=== PATIENT | male | born 1935 | race Caucasian/White ===

== ENCOUNTER 2020-08-01 06:07 | Outpatient (REF) | payer MEDICARE, MEDICAID, SELFPAY ==
[2020-08-01 11:33] LABS: Hematocrit 43.1 % (42-52); Hemoglobin 13.2 g/dl (14.0-18.0); Mean Corpuscular HGB Conc 30.6 g/dl (31.0-36.0); Mean Corpuscular Hemoglobin 27.3 pg (27.0-33.0); Mean Corpuscular Volume 89.2 fL (80-98); Mean Platelet Volume 10.6 fL (9.4-12.4); Platelet Count 299 X10*3/uL (160-400); Red Blood Count 4.83 X10*6/uL (4.60-5.80); Red Cell Distribution Width 14.2 % (11.0-16.0); White Blood Count 7.5 X10*3/uL (4.8-10.8)
[2020-08-01 11:57] LABS: Alanine Aminotransferase 16 U/L (0-40); Anion Gap 14 (12-20); Aspartate Amino Transferase 17 U/L (5-37); Blood Urea Nitrogen 23 mg/dL (9-16); Calcium 9.1 mg/dL (8.4-10.2); Carbon Dioxide 27 mmol/L (22-29); Chloride 103 mmol/L (96-108); Cholesterol 131 mg/dL; Estimated Glomerular Filt Rate > 60; Glucose Fasting 152 mg/dL (60-99); HDL Cholesterol 35 mg/dL; LDL Cholesterol Calculated 78 mg/dl; Potassium 4.4 mmol/l (3.3-5.1); Sodium 140 mmol/L (135-145); Triglycerides 93 mg/dL
[2020-08-01 12:20] LABS: Ferritin 38 ng/mL (20-250); Free T4 (Free Thyroxine) 1.14 ng/dL (0.71-1.85); Thyroid Stimulating Hormone 0.37 mIU/mL (0.32-4.0)
== END 2020-08-01 06:08 | disposition home or self-care (01) ==
LOC: HO.HMGCLDS 06:07
PROVIDERS: PCP Internal Medicine; Visit Provider Internal Medicine
DX: D50.0 Iron deficiency anemia secondary to blood loss (chronic) (principal); E78.5 Hyperlipidemia, unspecified; E11.9 Type 2 diabetes mellitus without complications; E03.9 Hypothyroidism, unspecified; Z86.73 Personal history of transient ischemic attack (TIA), and cerebral infarction without residual deficits
CPT/HCPCS: 36415; 80048; 80061; 82728; 84439; 84443; 84450; 84460; 85027

== ENCOUNTER 2020-11-11 06:11 | Outpatient (REF) | payer MEDICARE, MEDICAID, SELFPAY ==
[2020-11-11 11:01] LABS: MANUAL DIFF FLAG NO
[2020-11-11 11:22] LABS: Basophils Absolute Auto 0.1 X10*3/uL (0.0-0.2); Basophils Percent Auto 0.8 % (0-2); Eosinophils Absolute Auto 0.3 X10*3/uL (0.0-0.4); Eosinophils Percent Auto 3.8 % (0-4); Estimated Average Glucose 169 mg/dL; Hematocrit 44.7 % (42-52); Hemoglobin 13.9 g/dl (14.0-18.0); Hemoglobin A1c % 7.5 %; Imm Gran Abs Auto 0.04 X10*3/uL (0.00-0.03); Imm Gran Pct Auto 0.5 % (0.0-0.4); Lymphocytes Absolute Auto 1.7 X10*3/uL (1.2-4.9); Lymphocytes Percent Auto 19.2 % (20-40); Mean Corpuscular HGB Conc 31.1 g/dl (31.0-36.0); Mean Corpuscular Hemoglobin 28.3 pg (27.0-33.0); Mean Corpuscular Volume 90.9 fL (80-98); Monocytes Absolute Auto 0.9 X10*3/uL (0.1-1.2); Monocytes Percent Auto 10.8 % (2-11); Neutrophils Absolute Auto 5.7 X10*3/uL (2.0-8.3); Neutrophils Percent Auto 64.9 % (45-73); Platelet Count 291 X10*3/uL (160-400); Red Blood Count 4.92 X10*6/uL (4.60-5.80); Red Cell Distribution Width 13.6 % (11.0-16.0); White Blood Count 8.7 X10*3/uL (4.8-10.8)
[2020-11-11 12:10] LABS: Alanine Aminotransferase 15 U/L (0-40); Anion Gap 15 (12-20); Blood Urea Nitrogen 25 mg/dL (9-16); Calcium 9.1 mg/dL (8.4-10.2); Carbon Dioxide 26 mmol/L (22-29); Chloride 107 mmol/L (96-108); Cholesterol 127 mg/dL; Estimated Glomerular Filt Rate > 60; Glucose Fasting 157 mg/dL (60-99); HDL Cholesterol 34 mg/dL; LDL Cholesterol Calculated 77 mg/dl; Potassium 4.7 mmol/l (3.3-5.1); Sodium 143 mmol/L (135-145); Triglycerides 80 mg/dL
[2020-11-11 12:14] LABS: Free T4 (Free Thyroxine) 1.02 ng/dL (0.71-1.85); Thyroid Stimulating Hormone 0.51 uIU/mL (0.32-4.0); Vitamin D 25-OH Total 8.4 ng/mL (>30)
[2020-11-11 12:23] LABS: Aspartate Amino Transferase 15 U/L (5-37)
[2020-11-11 12:36] LABS: Creatinine Urine 84.07 mg/dL; Microalbum/Creatinine Ratio Ur 11.8 ug/mg cr
== END 2020-11-11 06:12 | disposition home or self-care (01) ==
LOC: HO.HMGCLDS 06:11
PROVIDERS: PCP Internal Medicine; Visit Provider Internal Medicine
DX: E11.65 Type 2 diabetes mellitus with hyperglycemia (principal); I10 Essential (primary) hypertension; E78.5 Hyperlipidemia, unspecified; D50.0 Iron deficiency anemia secondary to blood loss (chronic); E03.9 Hypothyroidism, unspecified; E11.9 Type 2 diabetes mellitus without complications
CPT/HCPCS: 36415; 80048; 80061; 82043; 82306; 83036; 84439; 84443; 84450; 84460; 85025

== ENCOUNTER 2021-02-16 06:10 | Outpatient (REF) | payer MEDICARE, MEDICAID, SELFPAY ==
[2021-02-16 11:10] LABS: MANUAL DIFF FLAG NO
[2021-02-16 11:30] LABS: Basophils Absolute Auto 0.1 X10*3/uL (0.0-0.2); Basophils Percent Auto 0.6 % (0-2); Eosinophils Absolute Auto 0.3 X10*3/uL (0.0-0.4); Hematocrit 44.4 % (42-52); Hemoglobin 14.2 g/dl (14.0-18.0); Imm Gran Abs Auto 0.07 X10*3/uL (0.00-0.03); Imm Gran Pct Auto 0.8 % (0.0-0.4); Lymphocytes Absolute Auto 1.7 X10*3/uL (1.2-4.9); Lymphocytes Percent Auto 18.5 % (20-40); Mean Corpuscular Hemoglobin 28.8 pg (27.0-33.0); Mean Corpuscular Volume 90.1 fL (80-98); Mean Platelet Volume 11.3 fL (9.4-12.4); Monocytes Absolute Auto 0.9 X10*3/uL (0.1-1.2); Monocytes Percent Auto 9.4 % (2-11); Neutrophils Absolute Auto 6.2 X10*3/uL (2.0-8.3); Neutrophils Percent Auto 67.7 % (45-73); Platelet Count 269 X10*3/uL (160-400); Red Blood Count 4.93 X10*6/uL (4.60-5.80); Red Cell Distribution Width 13.3 % (11.0-16.0); White Blood Count 9.1 X10*3/uL (4.8-10.8)
[2021-02-16 11:55] LABS: Alanine Aminotransferase 14 U/L (0-40); Albumin Level 4.3 g/dL (3.5-5.0); Alkaline Phosphatase 79 U/L (39-117); Anion Gap 16 (12-20); Aspartate Amino Transferase 14 U/L (5-37); Bilirubin Total 0.8 mg/dL (0.0-1.0); Blood Urea Nitrogen 30 mg/dL (9-16); Calcium 9.9 mg/dL (8.4-10.2); Carbon Dioxide 26 mmol/L (22-29); Chloride 103 mmol/L (96-108); Cholesterol 133 mg/dL; Estimated Glomerular Filt Rate > 60; Glucose Fasting 141 mg/dL (60-99); HDL Cholesterol 36 mg/dL; Iron 82 mcg/dL (45-160); LDL Cholesterol Calculated 81 mg/dl; Percent Iron Saturation 23 % (15-50); Potassium 4.8 mmol/L (3.3-5.1); Sodium 140 mmol/L (135-145); Total Iron Binding Capacity 354 mcg/dL (228-428); Total Protein 7.1 g/dL (6.5-8.0); Triglycerides 84 mg/dL; Unsaturated Iron Binding 272 ug/dL
[2021-02-16 12:22] LABS: Ferritin 43 ng/mL (20-250); Thyroid Stimulating Hormone 0.43 uIU/mL (0.32-4.0); Vitamin D 25-OH Total 39.7 ng/mL (>30)
[2021-02-16 12:33] LABS: Estimated Average Glucose 157 mg/dL; Hemoglobin A1c % 7.1 %
[2021-02-16 12:45] LABS: Creatinine Urine 54.64 mg/dL; Microalbumin Urine < 5.0 mg/L
[2021-02-17 10:52] LABS: Thyroid Peroxidase Antibodies 191 IU/mL (<9)
== END 2021-02-16 06:11 | disposition home or self-care (01) ==
LOC: HO.HMGCLDS 06:10
PROVIDERS: PCP Internal Medicine; Visit Provider Internal Medicine
DX: E11.65 Type 2 diabetes mellitus with hyperglycemia (principal); E55.9 Vitamin D deficiency, unspecified; D50.0 Iron deficiency anemia secondary to blood loss (chronic); E66.01 Morbid (severe) obesity due to excess calories; I10 Essential (primary) hypertension; E03.9 Hypothyroidism, unspecified; E78.5 Hyperlipidemia, unspecified; Z12.5 Encounter for screening for malignant neoplasm of prostate
CPT/HCPCS: 36415; 80053; 80061; 82043; 82306; 82728; 83036; 83540; 84153; 84439; 84443; 85025; 86376

== ENCOUNTER 2021-05-18 06:09 | Outpatient (REF) | payer MEDICARE, MEDICAID, SELFPAY ==
[2021-05-18 11:21] LABS: MANUAL DIFF FLAG NO
[2021-05-18 11:46] LABS: Alanine Aminotransferase 12 U/L (0-40); Anion Gap 14 (12-20); Aspartate Amino Transferase 17 U/L (5-37); Blood Urea Nitrogen 15 mg/dL (9-16); Calcium 9.8 mg/dL (8.4-10.2); Carbon Dioxide 27 mmol/L (22-29); Chloride 105 mmol/L (96-108); Cholesterol 116 mg/dL; Estimated Glomerular Filt Rate > 60; Glucose Fasting 157 mg/dL (60-99); HDL Cholesterol 34 mg/dL; Iron 86 mcg/dL (45-160); LDL Cholesterol Calculated 68 mg/dl; Percent Iron Saturation 27 % (15-50); Potassium 5.2 mmol/L (3.3-5.1); Sodium 141 mmol/L (135-145); Total Iron Binding Capacity 320 mcg/dL (228-428); Triglycerides 72 mg/dL; Unsaturated Iron Binding 234 ug/dL
[2021-05-18 11:52] LABS: Basophils Absolute Auto 0.1 X10*3/uL (0.0-0.2); Basophils Percent Auto 0.9 % (0-2); Eosinophils Absolute Auto 0.2 X10*3/uL (0.0-0.4); Eosinophils Percent Auto 2.6 % (0-4); Hematocrit 42.7 % (42-52); Hemoglobin 13.4 g/dl (14.0-18.0); Imm Gran Abs Auto 0.06 X10*3/uL (0.00-0.03); Imm Gran Pct Auto 0.9 % (0.0-0.4); Lymphocytes Absolute Auto 1.1 X10*3/uL (1.2-4.9); Mean Corpuscular HGB Conc 31.4 g/dl (31.0-36.0); Mean Corpuscular Hemoglobin 28.8 pg (27.0-33.0); Mean Corpuscular Volume 91.6 fL (80-98); Mean Platelet Volume 10.5 fL (9.4-12.4); Monocytes Absolute Auto 0.7 X10*3/uL (0.1-1.2); Monocytes Percent Auto 9.4 % (2-11); Neutrophils Percent Auto 70.2 % (45-73); Platelet Count 279 X10*3/uL (160-400); Red Blood Count 4.66 X10*6/uL (4.60-5.80); Red Cell Distribution Width 13.8 % (11.0-16.0); White Blood Count 7.1 X10*3/uL (4.8-10.8)
[2021-05-18 11:58] LABS: Estimated Average Glucose 160 mg/dL; Hemoglobin A1c % 7.2 %
[2021-05-18 12:10] LABS: Free T4 (Free Thyroxine) 1.01 ng/dL (0.71-1.85); Thyroid Stimulating Hormone 0.93 uIU/mL (0.32-4.0)
== END 2021-05-18 06:10 | disposition home or self-care (01) ==
LOC: HO.HMGCLDS 06:09
PROVIDERS: PCP Internal Medicine; Visit Provider Internal Medicine
DX: D50.0 Iron deficiency anemia secondary to blood loss (chronic) (principal); E03.9 Hypothyroidism, unspecified; E11.65 Type 2 diabetes mellitus with hyperglycemia; E55.9 Vitamin D deficiency, unspecified; E66.01 Morbid (severe) obesity due to excess calories; E78.5 Hyperlipidemia, unspecified; I10 Essential (primary) hypertension
CPT/HCPCS: 36415; 80048; 80061; 82306; 83036; 83540; 84439; 84443; 84450; 84460; 85025

== ENCOUNTER 2021-09-08 06:09 | Outpatient (REF) | payer MEDICARE, MEDICAID, SELFPAY ==
[2021-09-08 12:05] LABS: Alanine Aminotransferase 12 U/L (0-40); Anion Gap 14 (12-20); Aspartate Amino Transferase 14 U/L (5-37); Blood Urea Nitrogen 19 mg/dL (9-16); Calcium 9.6 mg/dL (8.4-10.2); Carbon Dioxide 27 mmol/L (22-29); Chloride 103 mmol/L (96-108); Cholesterol 131 mg/dL; Estimated Glomerular Filt Rate > 60; Glucose Fasting 162 mg/dL (60-99); HDL Cholesterol 33 mg/dL; LDL Cholesterol Calculated 83 mg/dl; Potassium 4.9 mmol/L (3.3-5.1); Sodium 139 mmol/L (135-145); Triglycerides 78 mg/dL
[2021-09-08 12:10] LABS: Free T4 (Free Thyroxine) 0.98 ng/dL (0.71-1.85); Vitamin D 25-OH Total 47.6 ng/mL (>30)
[2021-09-08 13:40] LABS: Estimated Average Glucose 146 mg/dL; Hemoglobin A1c % 6.7 %
== END 2021-09-08 06:10 | disposition home or self-care (01) ==
LOC: HO.HMGCLDS 06:09
PROVIDERS: PCP Internal Medicine; Visit Provider Internal Medicine
DX: E03.9 Hypothyroidism, unspecified (principal); E11.65 Type 2 diabetes mellitus with hyperglycemia; E66.01 Morbid (severe) obesity due to excess calories; E78.5 Hyperlipidemia, unspecified; I10 Essential (primary) hypertension
CPT/HCPCS: 36415; 80048; 80061; 82306; 83036; 84439; 84443; 84450; 84460

== ENCOUNTER 2022-03-16 06:03 | Outpatient (REF) | payer MEDICARE, MEDICAID, SELFPAY ==
[2022-03-16 11:21] LABS: MANUAL DIFF FLAG NO
[2022-03-16 11:36] LABS: Basophils Absolute Auto 0.1 X10*3/uL (0.0-0.2); Basophils Percent Auto 0.8 % (0-2); Eosinophils Absolute Auto 0.3 X10*3/uL (0.0-0.4); Eosinophils Percent Auto 3.5 % (0-4); Hemoglobin 13.5 g/dl (14.0-18.0); Imm Gran Abs Auto 0.15 X10*3/uL (0.00-0.03); Imm Gran Pct Auto 1.7 % (0.0-0.4); Lymphocytes Absolute Auto 1.8 X10*3/uL (1.2-4.9); Mean Corpuscular HGB Conc 31.4 g/dl (31.0-36.0); Mean Corpuscular Hemoglobin 28.8 pg (27.0-33.0); Mean Corpuscular Volume 91.9 fL (80.0-98.0); Mean Platelet Volume 10.5 fL (9.4-12.4); Monocytes Absolute Auto 0.8 X10*3/uL (0.1-1.2); Monocytes Percent Auto 9.2 % (2-11); Neutrophils Absolute Auto 5.7 x10*3/uL (2.0-8.3); Neutrophils Percent Auto 64.8 % (45-73); Platelet Count 257 X10*3/uL (160-400); Red Blood Count 4.68 X10*6/uL (4.60-5.80); Red Cell Distribution Width 13.9 % (11.0-16.0); White Blood Count 8.8 X10*3/uL (4.8-10.8)
[2022-03-16 12:01] LABS: Estimated Average Glucose 154 mg/dL
[2022-03-16 12:12] LABS: Alanine Aminotransferase 13 U/L (0-40); Anion Gap 13 (12-20); Aspartate Amino Transferase 16 U/L (5-37); Blood Urea Nitrogen 19 mg/dL (9-16); Calcium 9.5 mg/dL (8.4-10.2); Carbon Dioxide 25 mmol/L (22-29); Chloride 108 mmol/L (96-108); Cholesterol 218 mg/dL; Estimated Glomerular Filt Rate > 60; Glucose Fasting 156 mg/dL (60-99); HDL Cholesterol 33 mg/dL; Iron 47 mcg/dL (45-160); LDL Cholesterol Calculated 165 mg/dl; Percent Iron Saturation 15 % (15-50); Potassium 4.8 mmol/L (3.3-5.1); Sodium 141 mmol/L (135-145); Total Iron Binding Capacity 321 mcg/dL (228-428); Triglycerides 102 mg/dL; Unsaturated Iron Binding 274 ug/dL
[2022-03-16 12:28] LABS: Free T4 (Free Thyroxine) 0.58 ng/dL (0.71-1.85); PSA,Total (Free>4and<10) 15.23 ng/mL (0.00-4.00); Thyroid Stimulating Hormone 29.87 uIU/mL (0.32-4.0); Vitamin D 25-OH Total 21.6 ng/mL (>30)
== END 2022-03-16 06:04 | disposition home or self-care (01) ==
LOC: HO.HMGCLDS 06:03
PROVIDERS: Visit Provider Internal Medicine
DX: Z12.5 Encounter for screening for malignant neoplasm of prostate (principal); E03.9 Hypothyroidism, unspecified; E11.9 Type 2 diabetes mellitus without complications; E55.9 Vitamin D deficiency, unspecified; E66.01 Morbid (severe) obesity due to excess calories; E78.5 Hyperlipidemia, unspecified; I10 Essential (primary) hypertension; R97.20 Elevated prostate specific antigen [PSA]; E50.0 Vitamin A deficiency with conjunctival xerosis
CPT/HCPCS: 36415; 80048; 80061; 82306; 83036; 83540; 84153; 84439; 84443; 84450; 84460; 85025

== ENCOUNTER 2022-06-18 06:05 | Outpatient (REF) | payer MEDICARE, MEDICAID, SELFPAY ==
[2022-06-18 11:49] LABS: Estimated Average Glucose 143 mg/dL; Hemoglobin A1c % 6.6 %
[2022-06-18 12:06] LABS: Alanine Aminotransferase 14 U/L (0-40); Anion Gap 16 (12-20); Aspartate Amino Transferase 18 U/L (5-37); Blood Urea Nitrogen 18 mg/dL (9-16); Calcium 9.4 mg/dL (8.4-10.2); Carbon Dioxide 25 mmol/L (22-29); Chloride 105 mmol/L (96-108); Cholesterol 109 mg/dL; Estimated Glomerular Filt Rate > 60; Glucose Fasting 136 mg/dL (60-99); HDL Cholesterol 33 mg/dL; LDL Cholesterol Calculated 64 mg/dl; Potassium 4.9 mmol/L (3.3-5.1); Sodium 141 mmol/L (135-145); Triglycerides 60 mg/dL
[2022-06-18 12:11] LABS: Free T4 (Free Thyroxine) 1.07 ng/dL (0.71-1.85); Thyroid Stimulating Hormone 1.91 uIU/mL (0.32-4.0); Vitamin D 25-OH Total 64.8 ng/mL (>30)
== END 2022-06-18 06:06 | disposition home or self-care (01) ==
LOC: HO.HMGCLDS 06:05
PROVIDERS: PCP Internal Medicine; Visit Provider Internal Medicine
DX: E03.9 Hypothyroidism, unspecified (principal); E11.9 Type 2 diabetes mellitus without complications; E55.9 Vitamin D deficiency, unspecified; E78.5 Hyperlipidemia, unspecified; I10 Essential (primary) hypertension
CPT/HCPCS: 36415; 80048; 80061; 82306; 83036; 84439; 84443; 84450; 84460

== ENCOUNTER 2022-09-21 06:01 | Outpatient (REF) | payer MEDICARE, MEDICAID, SELFPAY ==
[2022-09-21 14:10] LABS: Alanine Aminotransferase 13 U/L (0-40); Anion Gap 11 (12-20); Aspartate Amino Transferase 17 U/L (5-37); Blood Urea Nitrogen 21 mg/dL (9-16); Calcium 9.4 mg/dL (8.4-10.2); Carbon Dioxide 29 mmol/L (22-29); Chloride 108 mmol/L (96-108); Cholesterol 112 mg/dL; Estimated Glomerular Filt Rate > 60; Glucose Fasting 146 mg/dL (60-99); HDL Cholesterol 35 mg/dL; LDL Cholesterol Calculated 64 mg/dl; Potassium 5.2 mmol/L (3.3-5.1); Sodium 143 mmol/L (135-145); Thyroid Stimulating Hormone 1.82 uIU/mL (0.32-4.0); Triglycerides 69 mg/dL; Vitamin D 25-OH Total 33.6 ng/mL (>30)
[2022-09-21 15:20] LABS: Estimated Average Glucose 128 mg/dL; Hemoglobin A1c % 6.1 %
== END 2022-09-21 06:02 | disposition home or self-care (01) ==
LOC: HO.HMGCLDS 06:01
PROVIDERS: PCP Internal Medicine; Visit Provider Internal Medicine
DX: E11.9 Type 2 diabetes mellitus without complications (principal); E55.9 Vitamin D deficiency, unspecified; E66.01 Morbid (severe) obesity due to excess calories; E78.5 Hyperlipidemia, unspecified; I10 Essential (primary) hypertension; E03.9 Hypothyroidism, unspecified
CPT/HCPCS: 36415; 80048; 80061; 82306; 83036; 84439; 84443; 84450; 84460

== ENCOUNTER 2023-03-25 06:03 | Outpatient (REF) | payer MEDICARE, MEDICAID, SELFPAY ==
[2023-03-25 11:18] LABS: MANUAL DIFF FLAG NO
[2023-03-25 11:37] LABS: Basophils Absolute Auto 0.1 X10*3/uL (0.0-0.2); Basophils Percent Auto 0.6 % (0-2); Eosinophils Absolute Auto 0.2 X10*3/uL (0.0-0.4); Hematocrit 40.9 % (42.0-52.0); Hemoglobin 12.4 g/dl (14.0-18.0); Imm Gran Abs Auto 0.03 X10*3/uL (0.00-0.03); Imm Gran Pct Auto 0.4 % (0.0-0.4); Lymphocytes Absolute Auto 1.4 X10*3/uL (1.2-4.9); Mean Corpuscular HGB Conc 30.3 g/dl (31.0-36.0); Mean Corpuscular Hemoglobin 26.4 pg (27.0-33.0); Mean Platelet Volume 10.7 fL (9.4-12.4); Monocytes Absolute Auto 0.8 X10*3/uL (0.1-1.2); Monocytes Percent Auto 10.2 % (2-11); Neutrophils Absolute Auto 5.3 x10*3/uL (2.0-8.3); Neutrophils Percent Auto 67.8 % (45-73); Platelet Count 266 X10*3/uL (160-400); White Blood Count 7.8 X10*3/uL (4.8-10.8)
[2023-03-25 12:10] LABS: Alanine Aminotransferase 13 U/L (0-40); Anion Gap 14 (12-20); Aspartate Amino Transferase 18 U/L (5-37); Blood Urea Nitrogen 20 mg/dL (9-16); Calcium 9.9 mg/dL (8.4-10.2); Carbon Dioxide 29 mmol/L (22-29); Chloride 105 mmol/L (96-108); Cholesterol 102 mg/dL; Estimated Glomerular Filt Rate > 60; Glucose Fasting 133 mg/dL (60-99); HDL Cholesterol 36 mg/dL; LDL Cholesterol Calculated 54 mg/dl; Sodium 143 mmol/L (135-145); Triglycerides 60 mg/dL
[2023-03-25 12:14] LABS: Creatinine Urine 97.68 mg/dL; Microalbum/Creatinine Ratio Ur 20.4 ug/mg cr
[2023-03-25 12:15] LABS: Free T4 (Free Thyroxine) 0.93 ng/dL (0.71-1.85); Thyroid Stimulating Hormone 1.05 uIU/mL (0.32-4.0); Vitamin D 25-OH Total 33.5 ng/mL (>30)
== END 2023-03-25 06:04 | disposition home or self-care (01) ==
LOC: HO.HMGCLDS 06:03
PROVIDERS: PCP Internal Medicine; Visit Provider Internal Medicine
DX: E03.9 Hypothyroidism, unspecified (principal); E11.9 Type 2 diabetes mellitus without complications; E66.01 Morbid (severe) obesity due to excess calories; E78.5 Hyperlipidemia, unspecified; I10 Essential (primary) hypertension
CPT/HCPCS: 36415; 80048; 80061; 82043; 82306; 84439; 84443; 84450; 84460; 85025

== ENCOUNTER 2023-03-29 10:35 | Outpatient (AMB) | payer MEDICARE, MEDICAID, SELFPAY ==
--- NOTE | 2023-03-29 11:00 | A.OFFPC_ITS ---
<Statement entered by Evon Ashton MD - 02/20/25 15:16> This note has been administratively?closed. Vital Signs 03/29/23 11:18 Height 5 ft 2 in Weight 220 lb BMI 40.2 BP 142/64 H Blood Pressure Location Rt brachial Position Sitting Pulse 78 Pulse Source Pulse Oximeter Pulse Oximetry (%) 96 Oxygen Delivery Method Room Air Intake Visit Reasons: 6m ffup dm ,lipids ,htn , thyroid Intake Note: Pt Allergies No Known Allergies Allergy (Verified 03/29/23 11:35) Medication List - Last Reconciled 03/29/23 by Evon Ashton MD acetaminophen (Tylenol) 325 mg PO QID PRN aspirin (Adult Low Dose Aspirin) 81 mg PO DAILY atorvastatin 80 mg PO DAILY levothyroxine 125 mcg PO QAM lisinopril-hydrochlorothiazide 20-25 mg 1 tab PO DAILY metformin 500 mg PO QPM Tobacco use date assessed: 03/29/23 Fall risk assessment: No Falls in past year Last assessed Fall Risk: 03/29/23 [facility] Medical History Acquired hypothyroidism Acute erosive gastritis Diabetes mellitus, without long-term current use of insulin Dyslipidemia Elevated PSA, between 10 and less than 20 ng/ml Essential hypertension Gait instability Iron deficiency anemia due to chronic blood loss Morbid obesity TIA (transient ischemic attack) Vaccination refused by patient Vitamin D deficiency Surgical History No pertinent past surgical history Family History Father Unknown family medical history Mother Unknown family medical history Son No problems noted. Daughter No problems noted. Daughter No problems noted. Daughter No problems noted. Social History Housing: Apartment Alcohol intake: never Patient Tobacco Use Status: Never used Tobacco e-Cigarette/Vaping Use: Never Used Second Hand Smoke Exposure: No Advance Directives: Yes Advance Directives on File: Yes Advance Directives Date on File: 09/23/22 Healthcare Proxy: Yes If Yes to HCP, is it invoked: Yes service: No Current occupational status: retired Current occupational exposures/hazards: No Cognitive needs: Yes (needs daughter to translate , speaks only Telugu ) Hearing needs: No Vision needs: Yes Questionnaire Thrive Questionnaire Date Thrive assessed: 03/17/22 AUDIT C Alcohol Use Questionnaire (AUDIT-C) 1. How often do you have a drink containing alcohol?: Never Total Score: 0 GEOVANY-7 AMB Questionnaire GEOVANY-7 Date GEOVANY - 7 assessed: 03/17/22 Source: Developed by Drs. Fransico Stewart, Mila Perkins, Tapan Monreal and colleagues, with an educational jorge from [employer]. Physical exam (Primary Care) Vital Signs: Last Vital Signs Pulse 78 03/29/23 11:18 BP 142/64 H 03/29/23 11:18 Pulse Ox 96 03/29/23 11:18 Oxygen Delivery Method Room Air 03/29/23 11:18 BMI result Body Mass Index 40.2 Tobacco/Smoking Status: Tobacco use Status Tobacco use date assessed 03/29/23 03/29/23 11:03 Patient Tobacco Use Status Never used Tobacco 03/29/23 11:01 e-Cigarette/Vaping Use Never Used 03/29/23 11:01 Thrive Assessment: Date of Thrive Assessment Date Thrive assessed 03/17/22 03/29/23 11:01 Results AMB Hemoglobin A1c AMB Hemoglobin A1c 6.4 % Last Edit by Tia Rolle CMA on 03/29/23 11:33 Results Reviewed Results Reviewed: Laboratory Last Values Hgb A1c (Clinic) 6.4 % (4.0-6.0) H 03/29/23 11:27 ENTERED: 03/25/23-608 OT : ORDERED: CBC Auto Diff Test Result Flag Reference Site WBC 7.8 4.8-10.8 X10*3/uL RBC 4.70 4.60-5.80 X10*6/uL HGB 12.4 L 14.0-18.0 g/dl HCT 40.9 L 42.0-52.0 % MCV 87.0 80.0-98.0 fL MCH 26.4 L 27.0-33.0 pg MCHC 30.3 L 31.0-36.0 g/dl RDW 16.0 11.0-16.0 % PLT 266 160-400 X10*3/uL MPV 10.7 9.4-12.4 fL Neut Pct Auto 67.8 45-73 % ImGran Pct Auto 0.4 0.0-0.4 % Lymp Pct Auto 18.0 L 20-40 % Swisher Pct Auto 10.2 2-11 % Eos Pct Auto 3.0 0-4 % Baso Pct Auto 0.6 0-2 % NRBC Pct Auto 0.0 0.0-0.2 /100WBC ANC Neut Abs # 5.3 2.0-8.3 x10*3/uL ImGran Abs Auto 0.03 0.00-0.03 X10*3/uL Lymph Abs Auto 1.4 1.2-4.9 X10*3/uL Swisher Abs Auto 0.8 0.1-1.2 X10*3/uL Eos Abs Auto 0.2 0.0-0.4 X10*3/uL Baso Abs Auto 0.1 0.0-0.2 X10*3/uL NRBC Abs Auto 0.000 0.0-0.012 X10*3/uL ENTERED: 03/25/23-[address] [facility] [address]: ORDERED: Met Prof Fast, AST, ALT, Lipid Panel, Vitamin D 25-OH, Free T4, TSH Test Result Flag Reference Site Sodium 143 135-145 mmol/L Potassium 5.0 3.3-5.1 mmol/L CL 105 96-108 mmol/L CO2 29 22-29 mmol/L Gap 14 12-20 BUN 20 H 9-16 mg/dL Creat 0.99 0.5-1.4 mg/dL EGFR > 60 NOTE: For -Bahamian individuals, multiply the result by 1.210. Chronic Kidney Disease: Estimated GFR < 60 mL/min/1.73m2 Severe Kidney Disease: Estimated GFR < 15 mL/min/1.73m2 FBS 133 H 60-99 mg/dL A fasting glucose of 126 mg/dl or greater on more than one occasion is considered diagnostic of diabetes. CA 9.9 8.4-10.2 mg/dL AST (GOT) 18 5-37 U/L ALT (GPT) 13 0-40 U/L Triglyceride 60 mg/dL Desirable Triglyceride: less than 150 mg/dL Borderline High Triglyceride 150-199 mg/dL High Triglyceride: 200-499 mg/dL Very High Triglyceride: greater than or equal to 5OO mg/dL Chol 102 mg/dL Desirable Cholesterol: less than 200 mg/dL Borderline High Cholesterol: 200-239 mg/dL High Cholesterol: greater than 239 mg/dL LDL Calculated 54 mg/dl Desirable LDL: less than 100 mg/dL Near Optimal/Above Optimal LDL: 110-129 mg/dL Borderline High LDL: 130-159 mg/dL High LDL: 160-189 mg/dL Very High LDL: greater than or equal to 190 mg/dL HDL 36 mg/dL Desirable HDL: greater than 40 mg/dL Note: This HDL assay may give artificially low results in patients with liver disease. Vit D 25-OH Tot 33.5 >30 ng/mL Health Based Reference Values* < 20 ng/mL Deficient 20-30 ng/mL Insufficient > 30 ng/mL Sufficient *Rory BURGESS. N Engl J Med. 2007;357:266-280 Care must be taken in interpreting Vitamin D results from different laboratories and methodologies. Published data demonstrated that results from patients undergoing hemodialysis may show a negative bias when tested with various automated 25-OH vitamin D assays when compared to LC-MS/MS. When testing samples from patients whose predominant form of Vitamin D is Vitamin D2, such as patients receiving Vitamin D2 supplementation, results that are subtherapeutic should be confirmed with another method such as LC-MS/MS. Free T4 0.93 0.71-1.85 ng/dL TSH 3rd Gen. 1.05 0.32-4.0 uIU/mL TSH 3rd Generation ([facility]) Assessment and Plan Assessment & Plan (1) Diabetes mellitus, without long-term current use of insulin: Code(s): E11.9 - Type 2 diabetes mellitus without complications (2) Essential hypertension: Code(s): I10 - Essential (primary) hypertension (3) Acquired hypothyroidism: Code(s): E03.9 - Hypothyroidism, unspecified (4) Dyslipidemia: Code(s): E78.5 - Hyperlipidemia, unspecified Orders: Orders AMB Hemoglobin A1c Today E11.9 - Type 2 diabetes mellitus without complications Medications: Refilled levothyroxine 125 mcg PO QAM 90 tabs 3RF E03.9 - Hypothyroidism, unspecified lisinopril-hydrochlorothiazide 20-25 mg 1 tab PO DAILY 90 tabs 3RF metformin 500 mg PO QPM 90 tabs 3RF atorvastatin 80 mg PO DAILY 90 tabs 3RF Coding Level of Care Code Est Pt Level 4 (70687) Diagnoses Diabetes mellitus, without long-term current use of insulin E11.9 Essential hypertension I10 Acquired hypothyroidism E03.9 Dyslipidemia E78.5
[2023-03-29 11:18] VITALS: BP 142/64; PULSE 78; O2SAT 96; BMI 40.2
== END 2023-03-29 11:50 | disposition home or self-care (01) ==
PROVIDERS: Visit Provider Internal Medicine
DX: E11.9 Type 2 diabetes mellitus without complications (principal); I10 Essential (primary) hypertension; E03.9 Hypothyroidism, unspecified; E78.5 Hyperlipidemia, unspecified
CPT/HCPCS: 99499

== ENCOUNTER 2023-09-23 06:05 | Outpatient (REF) | payer MEDICARE, MEDICAID, SELFPAY ==
[2023-09-23 12:51] LABS: Estimated Average Glucose 154 mg/dL
[2023-09-23 14:58] LABS: Alanine Aminotransferase 16 U/L (0-40); Anion Gap 15 (12-20); Aspartate Amino Transferase 21 U/L (5-37); Blood Urea Nitrogen 32 mg/dL (9-16); Calcium 9.9 mg/dL (8.4-10.2); Carbon Dioxide 23 mmol/L (22-29); Chloride 107 mmol/L (96-108); Cholesterol 129 mg/dL (<200); Estimated Glomerular Filt Rate > 60; Glucose Fasting 153 mg/dL (60-99); HDL Cholesterol 38 mg/dL (>40); LDL Cholesterol Calculated 74 mg/dL (<100); Potassium 4.4 mmol/L (3.3-5.1); Sodium 141 mmol/L (135-145); Triglycerides 85 mg/dL (<150)
[2023-09-23 14:59] LABS: Free T4 (Free Thyroxine) 0.84 ng/dL (0.71-1.85); Thyroid Stimulating Hormone 3.31 uIU/mL (0.32-4.0)
== END 2023-09-23 06:06 | disposition home or self-care (01) ==
LOC: HO.HMGCLDS 06:05
PROVIDERS: PCP Internal Medicine; Visit Provider Internal Medicine
DX: I10 Essential (primary) hypertension (principal); E03.9 Hypothyroidism, unspecified; E78.5 Hyperlipidemia, unspecified; E11.9 Type 2 diabetes mellitus without complications
CPT/HCPCS: 36415; 80048; 80061; 83036; 84439; 84443; 84450; 84460

== ENCOUNTER 2023-09-28 10:38 | Outpatient (AMB) | payer MEDICARE, MEDICAID, SELFPAY ==
[2023-09-28 11:11] VITALS: BP 146/64; PULSE 74; O2SAT 99; BMI 40.6
--- NOTE | 2023-09-28 11:11 | MHC.PC.OV ---
Vital Signs 09/28/23 11:11 Height 5 ft 2 in Weight 222 lb 2 oz BMI 40.6 BP 146/64 H Blood Pressure Location Lt brachial Position Sitting Pulse 74 Pulse Source Pulse Oximeter Pulse Oximetry (%) 99 Oxygen Delivery Method Room Air Intake Visit Reasons: 6m follow up dm,lipids,htn,thyroid Intake Note: Pt is here to follow up for Lab results Allergies No Known Allergies Allergy (Verified 09/28/23 11:26) Medication List - Last Reconciled 09/28/23 by Evon Ashton MD acetaminophen (Tylenol) 325 mg PO QID PRN aspirin (Adult Low Dose Aspirin) 81 mg PO DAILY atorvastatin 80 mg PO DAILY levothyroxine 125 mcg PO QAM lisinopril-hydrochlorothiazide 20-25 mg 1 tab PO DAILY metformin 500 mg PO QPM Tobacco use date assessed: 09/28/23 Fall risk assessment: No Falls in past year Last assessed Fall Risk: 09/28/23 Dental Screening Dental Screen Date: 09/28/23 Did you have a dental visit in the last 12 months?: Yes Did you have a dental problem in the last 6 months where you did not have access to dental care?: No Was dental information given to patient?: Patient has dentist HPI 6m follow up dm,lipids,htn,thyroid HPI Details 88-year-old male with diabetes mellitus, hyperlipidemia, hypertension, hypothyroidism, and morbid obesity, here today for follow-up. He has been taking his medications , as per daughter tries to follow recommended diet, but does not get any exercise at all. Hardly gets out of the house, walks for little bit, but is is very sedentary. Also refuses to see any eye doctor for his eye check in diabetes retinopathy exam. As per daughter patient has been feeling well, with no complaints at present time. FORMERLY [facility] Medical History Diabetes mellitus, without long-term current use of insulin Elevated PSA, between 10 and less than 20 ng/ml Vitamin D deficiency Vaccination refused by patient Gait instability TIA (transient ischemic attack) Iron deficiency anemia due to chronic blood loss Acute erosive gastritis Morbid obesity Essential hypertension Acquired hypothyroidism Dyslipidemia Surgical History No pertinent past surgical history Family History Father Unknown family medical history Mother Unknown family medical history Son No problems noted. Daughter No problems noted. Daughter No problems noted. Daughter No problems noted. Social History Housing: Apartment Alcohol intake: never Patient Tobacco Use Status: Never used Tobacco e-Cigarette/Vaping Use: Never Used Second Hand Smoke Exposure: No Advance Directives Date on File: 09/23/22 service: No Current occupational status: retired Current occupational exposures/hazards: No Cognitive needs: Yes (needs daughter to translate , speaks only Bengali ) Hearing needs: No Vision needs: Yes Questionnaire PHQ-9 Over the last 2 weeks, how often have you been bothered by any of the following problems? 1. Little interest or pleasure in doing things: not at all 2. Feeling down, depressed, or hopeless: not at all 3. Trouble falling or staying asleep, or sleeping too much: more than half the days 4. Feeling tired or having little energy: several days 5. Poor appetite or overeating: not at all 6. Feeling bad about yourself - or that you are a failure or have let yourself or your family down: not at all 7. Trouble concentrating on things, such as reading the newspaper or watching television: not at all 8. Moving or speaking so slowly that other people could have noticed. Or the opposite - being so fidgety or restless that you have been moving around a lot more than usual: not at all 9. Thoughts that you would be better off or of hurting yourself in some way: not at all Total score: 3 Depression Screening Interpretation: Negative Depression Screening Done: Yes 80303 - PHQ-9 Billing: Yes Source: Developed by Drs. Fransico Stewart, Mila Perkins, Tapan Monreal and colleagues, with an educational jorge from [employer]. Thrive Questionnaire Date Thrive assessed: 09/28/23 I am a: Parent/Caregiver What is your living situation today?: I have a steady place to live Within the past 12 months, did the food you bought not last and you didn't have the money to get more?: Never true Within the past 12 months, did you worry whether your food would run out before you got money to buy more?: Never true Do you have trouble paying for medicines?: No Do you have trouble getting transportation to medical appointments?: No Do you have trouble paying your heating and electricity bill?: No Do you have trouble taking care of your child, family member or friend?: No Do you have trouble with day-to-day activities such as bathing, preparing meals, shopping, managing finances, etc.?: No Are you currently unemployed and looking for a job?: No Are you interested in more education?: No AUDIT C Alcohol Use Questionnaire (AUDIT-C) 1. How often do you have a drink containing alcohol?: Never Total Score: 0 GEOVANY-7 AMB Questionnaire GEOVANY-7 Date GEOVANY - 7 assessed: 09/28/23 Feeling nervous, anxious, or on edge: 0 = Not at all Not being able to stop or control worryin = Not at all Worrying too much about different things: 0 = Not at all Trouble relaxin = Not at all Being so restless that it is hard to sit still: 0 = Not at all Becoming easily annoyed or irritable: 0 = Not at all Feeling afraid as if something awful might happen: 0 = Not at all Total GEOVANY-7 score (0-4 normal; 5-9 mild; 10-14 moderate; 15-21 severe): 0 Source: Developed by Drs. Fransico Stewart, Mila Perkins, Tapan Monreal and colleagues, with an educational jorge from [employer]. GEOVANY-7 Assessment Billing GEOVANY-7 Assessment Tool: GEOVANY-7 Assessment 75063 Review of Systems Const Denies difficulty sleeping, Denies fever(s), Denies headache(s) and Reports weight loss Eyes Denies change in vision ENT Denies Normal hearing present (Unable to hear whispered voice), Denies dizziness, Denies headache(s), Denies nasal congestion, Denies nasal discharge and Denies sore throat Card Denies chest pain, Denies lightheadedness, Denies palpitations and Denies dyspnea Resp Denies chest congestion, Denies cough and Denies dyspnea GI Denies abdominal pain, Denies change in bowel habits and Denies heartburn Denies oliguria, Denies dysuria, Denies nocturia, Denies urinary frequency, Denies urinary hesitancy, Denies urinary incontinence and Denies urinary urgency Musc Reports arthralgias and Reports stiffness Skin/Breast Denies rash Neuro Denies Normal hearing present (Unable to hear whispered voice), Denies dizziness, Denies headache(s) and Denies Sensory deficit (Neuro) Psych Denies anxiety, Denies change in appetite, Denies depression and Denies irritability Endo Denies polydipsia, Denies polyuria and Denies palpitations Ramo/Lymph Denies easy bleeding and Denies easy bruising Aller/Immun Reports no additional complaints Physical exam (Primary Care) Vital Signs: Last Vital Signs Pulse 74 09/28/23 11:11 BP 146/64 H 09/28/23 11:11 Pulse Ox 99 09/28/23 11:11 Oxygen Delivery Method Room Air 09/28/23 11:11 BMI result Body Mass Index 40.6 BMI Assessment/Plan discussion: High BMI High, discussed plan: lifestyle, weight reduction, dietary and physical activity Tobacco/Smoking Status: Tobacco use Status Tobacco use date assessed 09/28/23 09/28/23 11:16 Patient Tobacco Use Status Never used Tobacco 09/28/23 11:16 e-Cigarette/Vaping Use Never Used 09/28/23 11:16 PHQ-9: PHQ-9 Score PHQ-9: Total score 3 11/12/23 09:51 Depression Screening Interpretation: Negative Thrive Assessment: Date of Thrive Assessment Date Thrive assessed 03/17/22 09/28/23 11:16 Const General: comfortable and no acute distress Nutritional Appearance: obese morbidly obese Orientation/consciousness: patient oriented x3 Limitations: ambulation with cane HENMT Head: Yes normal to inspection and Yes normocephalic Ears: EAC's normal General nose exam: Normal external nose present and No nasal discharge present Mouth: Normal oral and palatal mucosa present and moist mucous membranes Neck Neck: Yes full ROM and Yes no lymphadenopathy Thyroid: Thyroid normal Carotids: normal carotid upstroke Resp Auscultation: clear to auscultation bilaterally Cardio Rate: regular rate Rhythm: regular rhythm Heart sounds: S1 normal heart sound present and S2 normal heart sound present GI Inspection: Yes normal to inspection, Yes Abdominal panniculus present and Yes obesity Palpation (GI): Soft to palpation Auscultation: normal bowel sounds General: Yes no CVA tenderness Back/Spine/Pelvis Back: no CVA tenderness and No back tenderness Skin General skin exam: no rashes or lesions noted Neuro General: patient oriented x3, moves all extremities, Normal light touch and pain sensation, no focal motor deficits and CN's II-XI intact bilaterally Cranial nerves: No Normal hearing present (Unable to hear whispered voice) Sensory Exam: No Sensory deficit (Neuro) Extrem General: Yes normal to inspection, Yes full ROM, Yes no joint enlargement, Yes no pedal edema and Yes no calf tenderness Results Reviewed Results Reviewed: Laboratory Tests 09/21/22 09/23/23 06:08 06:25 Estimat Average Glucose 128 154 Hemoglobin A1c % 6.1 7.0 H PEC : [id number] BRITTANI: 09/23/23 STATUS: COMP REQ : [id number] RECD: 09/23/[address]: Evon Ashton MD COMP: 09/23/23 ENTERED: 09/23/23 [facility]: ORDERED: Met Prof Fast, AST, ALT, Lipid Panel, Free T4, TSH Test Result Flag Reference Site Sodium 141 135-145 mmol/L Potassium 4.4 3.3-5.1 mmol/L CL 107 96-108 mmol/L CO2 23 22-29 mmol/L Gap 15 12-20 BUN 32 H 9-16 mg/dL Creat 1.02 0.5-1.4 mg/dL EGFR > 60 NOTE: For -Congolese individuals, multiply the result by 1.210. Chronic Kidney Disease: Estimated GFR < 60 mL/min/1.73m2 Severe Kidney Disease: Estimated GFR < 15 mL/min/1.73m2 FBS 153 H 60-99 mg/dL A fasting glucose of 126 mg/dl or greater on more than one occasion is considered diagnostic of diabetes. CA 9.9 8.4-10.2 mg/dL AST (GOT) 21 5-37 U/L ALT (GPT) 16 0-40 U/L Triglyceride 85 <150 mg/dL Desirable Triglyceride: less than 150 mg/dL Borderline High Triglyceride 150-199 mg/dL High Triglyceride: 200-499 mg/dL Very High Triglyceride: greater than or equal to 5OO mg/dL Cholesterol 129 <200 mg/dL Desirable Cholesterol: less than 200 mg/dL Borderline High Cholesterol: 200-239 mg/dL High Cholesterol: greater than 239 mg/dL LDL Calculated 74 <100 mg/dL Desirable LDL: less than 100 mg/dL Near Optimal/Above Optimal LDL: 110-129 mg/dL Borderline High LDL: 130-159 mg/dL High LDL: 160-189 mg/dL Very High LDL: greater than or equal to 190 mg/dL HDL 38 L >40 mg/dL Desirable HDL: greater than 40 mg/dL Note: This HDL assay may give artificially low results in patients with liver disease. Free T4 0.84 0.71-1.85 ng/dL TSH 3rd Gen. 3.31 0.32-4.0 uIU/mL Note: A sustained TSH level above 2.5 uIU/mL may warrant further investigation. TSH 3rd Generation ([facility]) Assessment and Plan Assessment & Plan (1) Diabetes mellitus, without long-term current use of insulin: Code(s): E11.9 - Type 2 diabetes mellitus without complications Plan: Recent lab results reviewed with patient, with sugar and hemoglobin A1c stable and at goal. Continue metformin 500 mg 1 tablet at night with supper. Reinforced diabetic diet and regular exercise with patient. Declines eye exam. Patient advised to inspect feet daily, for any signs of injury, callus or infection. Compliance with diet and regular exercise again stressed. Blood pressure goal is less than 130/80, goal LDL is less than 100 and goal hemoglobin A1c is less than 7% follow-up appointment made in--5-months, after fasting labs done. (2) Vaccination refused by patient: Code(s): Z28.21 - Immunization not carried out because of patient refusal (3) Essential hypertension: Code(s): I10 - Essential (primary) hypertension Plan: Blood pressure mildly elevated today, stressed importance of following a low-salt diet and staying active. Will continue on lisinopril HCTZ 20-25 mg 1 daily (4) Acquired hypothyroidism: Code(s): E03.9 - Hypothyroidism, unspecified Plan: Thyroid levels are low normal will continue on current dose of levothyroxine 125 mcg taken once a day in a.m., will repeat another thyroid level in 5 month (5) Dyslipidemia: Code(s): E78.5 - Hyperlipidemia, unspecified Plan: Reviewed recent fasting lipid profile with patient with levels within normal limits . Continue with atorvastatin 80 mg daily , in addition to adherence to low-cholesterol diet and regular exercise, at least 30 minutes 3 to 4 times a week. Advised patient to make healthy food choices, eat more fruits, vegetables, whole grains, wild caught fish and low-fat dairy. Limit amount of meat and fried or fatty food products, as well as processed foods and fast foods. Follow-up scheduled with repeat fasting lipid panel in 5 months. Orders: Orders Thyroid Stimulating Hormone 02/15/24 E11.9 - Type 2 diabetes mellitus without complications, E66.01 - Morbid (severe) obesity due to excess calories, I10 - Essential (primary) hypertension, E03.9 - Hypothyroidism, unspecified, E78.5 - Hyperlipidemia, unspecified Free T4 (Free Thyroxine) 02/15/24 E03.9 - Hypothyroidism, unspecified, E11.9 - Type 2 diabetes mellitus without complications, E66.01 - Morbid (severe) obesity due to excess calories, I10 - Essential (primary) hypertension, E78.5 - Hyperlipidemia, unspecified Lipid Panel 02/15/24 E11.9 - Type 2 diabetes mellitus without complications, E66.01 - Morbid (severe) obesity due to excess calories, I10 - Essential (primary) hypertension, E03.9 - Hypothyroidism, unspecified, E78.5 - Hyperlipidemia, unspecified Alanine Aminotransferase 02/15/24 E11.9 - Type 2 diabetes mellitus without complications, E66.01 - Morbid (severe) obesity due to excess calories, I10 - Essential (primary) hypertension, E03.9 - Hypothyroidism, unspecified, E78.5 - Hyperlipidemia, unspecified Aspartate Amino Transferase 02/15/24 E11.9 - Type 2 diabetes mellitus without complications, E66.01 - Morbid (severe) obesity due to excess calories, I10 - Essential (primary) hypertension, E03.9 - Hypothyroidism, unspecified, E78.5 - Hyperlipidemia, unspecified Hemoglobin A1c 02/15/24 E11.9 - Type 2 diabetes mellitus without complications, E66.01 - Morbid (severe) obesity due to excess calories, I10 - Essential (primary) hypertension, E03.9 - Hypothyroidism, unspecified, E78.5 - Hyperlipidemia, unspecified Microalbumin, Random (w Creat) 02/15/24 E11.9 - Type 2 diabetes mellitus without complications, E66.01 - Morbid (severe) obesity due to excess calories, I10 - Essential (primary) hypertension, E03.9 - Hypothyroidism, unspecified, E78.5 - Hyperlipidemia, unspecified Basic Metabolic Panel Fasting 02/15/24 E11.9 - Type 2 diabetes mellitus without complications, E66.01 - Morbid (severe) obesity due to excess calories, I10 - Essential (primary) hypertension, E03.9 - Hypothyroidism, unspecified, E78.5 - Hyperlipidemia, unspecified Coding Level of Care Code Est Pt Level 4 (60838) Diagnoses Diabetes mellitus, without long-term current use of insulin E11.9 Vaccination refused by patient Z28.21 Essential hypertension I10 Acquired hypothyroidism E03.9 Dyslipidemia E78.5 Additional Codes GEOVANY-7 Assessment Billing - GEOVANY-7 Assessment Tool: GEOVANY-7 Assessment 09903 ([id number])
== END 2023-09-28 13:27 | disposition home or self-care (01) ==
PROVIDERS: PCP Internal Medicine; Visit Provider Internal Medicine
DX: E11.69 Type 2 diabetes mellitus with other specified complication (principal); E66.01 Morbid (severe) obesity due to excess calories; Z68.41 Body mass index [BMI] 40.0-44.9, adult; Z28.21 Immunization not carried out because of patient refusal; I10 Essential (primary) hypertension; E03.9 Hypothyroidism, unspecified; E78.5 Hyperlipidemia, unspecified
CPT/HCPCS: 99214

== ENCOUNTER 2024-03-02 06:01 | Outpatient (REF) | payer MEDICARE, MEDICAID, SELFPAY ==
[2024-03-02 11:01] LABS: Estimated Average Glucose 160 mg/dL; Hemoglobin A1c % 7.2 % (<6.0)
[2024-03-02 11:16] LABS: Alanine Aminotransferase 13 U/L (0-40); Anion Gap 13 (12-20); Aspartate Amino Transferase 17 U/L (5-37); Blood Urea Nitrogen 23 mg/dL (9-16); Calcium 9.2 mg/dL (8.4-10.2); Carbon Dioxide 24 mmol/L (22-29); Chloride 108 mmol/L (96-108); Cholesterol 97 mg/dL (<200); Estimated Glomerular Filt Rate > 60; Glucose Fasting 158 mg/dL (60-99); HDL Cholesterol 31 mg/dL (>40); LDL Cholesterol Calculated 51 mg/dL (<100); Potassium 4.4 mmol/L (3.3-5.1); Sodium 141 mmol/L (135-145); Triglycerides 76 mg/dL (<150)
[2024-03-02 11:20] LABS: Free T4 (Free Thyroxine) 1.17 ng/dL (0.71-1.85); Thyroid Stimulating Hormone 0.64 uIU/mL (0.32-4.0)
[2024-03-02 11:37] LABS: Creatinine Urine 95.66 mg/dL; Microalbum/Creatinine Ratio Ur 15.6 ug/mg cr (<30)
== END 2024-03-02 06:02 | disposition home or self-care (01) ==
LOC: HO.HMGCLDS 06:01
PROVIDERS: PCP Internal Medicine; Visit Provider Internal Medicine
DX: E11.9 Type 2 diabetes mellitus without complications (principal); E66.01 Morbid (severe) obesity due to excess calories; I10 Essential (primary) hypertension; E03.9 Hypothyroidism, unspecified; E78.5 Hyperlipidemia, unspecified
CPT/HCPCS: 36415; 80048; 80061; 82043; 82570; 83036; 84439; 84443; 84450; 84460

== ENCOUNTER 2024-03-05 10:38 | Outpatient (AMB) | payer MEDICARE, MEDICAID, SELFPAY ==
[2024-03-05 10:46] VITALS: BP 140/64; PULSE 84; O2SAT 96; BMI 40.4
--- NOTE | 2024-03-05 10:46 | AM.OFFVISMDC ---
Intake Vital Signs 03/05/24 10:46 Height 5 ft 2 in Weight 221 lb BMI 40.4 BP 140/64 H Blood Pressure Location Lt brachial Position Sitting Pulse 84 Pulse Source Pulse Oximeter Pulse Oximetry (%) 96 Oxygen Delivery Method Room Air Intake Visit Reasons: SWV G0439 Intake Note: Pt is here today for his SWV Allergies No Known Allergies Allergy (Verified 03/05/24 11:01) Medication List - Last Reconciled 03/05/24 by Evon Ashton MD acetaminophen (Tylenol) 325 mg PO QID PRN aspirin (Adult Low Dose Aspirin) 81 mg PO DAILY atorvastatin 80 mg PO DAILY levothyroxine 125 mcg PO QAM lisinopril-hydrochlorothiazide 20-25 mg 1 tab PO DAILY metformin 500 mg PO QPM HPI SWV G0439 HPI Details SWV ? 88 year old male presents for his Subsequent Annual Wellness Visit.? He has hypertension, diabetes mellitus, dyslipidemia and hypothyroidism, currently stable and controlled on present treatment. Latest fasting lipids, and hemoglobin [id number] 03/02/24 were within normal limits except for slightly elevated hemoglobin A1c at 7.2%,. He has never had a colonoscopy screening, declined procedure. Does not want to get any vaccines. He had an elevated PSA level checked last 03/16/2020 to but does not want to be referred for urologic evaluation. He has decreased hearing, but does not want to be referred for further evaluation and management. He also does not want to see an eye doctor for his diabetes retinopathy screening or routine eye check . ? Medical / Social History Reviewed? Past Medical History ?Yes . ? [place] of Care / Care Team list updated ?Yes . ? Surgical/Hospitalization History ?Yes . ? Current Medications (including OTC and supplements) ?Yes . ? Family History ?Yes . ? Tobacco Control form ?Yes . ? AUDIT-C (Alcohol use) form ?Yes . ? Illicit drug use in Social History ?Yes . ? Current diagnosis of depression? ?No ? Appropriate PHQ2/PHQ9 completed ?Yes . ? Data entered by ?[employer] and reviewed by provider ? Fall Risk ? Fall History? Have you had any falls with injury in the past year? ?No . ? Have you had two or more falls in the past year? ?No . ? Fall Risk Assessment: ?No falls in the past year . ? HRA filled out by the patient, reviewed by Provider and scanned. ? SWV ? Balance? [place] ?Yes . ? Tandem walk ?unable ? Walk and Turn ?Yes , using cane ? Rise from sit to stand ?Yes . ?Vision? Corrective lens-none ? Vision screen - patient referred?Hearing? Whisper test ?-failed. ?Written Plan?Completed. See Patient Documents.? [facility] Medical History Diabetes mellitus, without long-term current use of insulin Elevated PSA, between 10 and less than 20 ng/ml Vitamin D deficiency Vaccination refused by patient Gait instability TIA (transient ischemic attack) Iron deficiency anemia due to chronic blood loss Acute erosive gastritis Morbid obesity Essential hypertension Acquired hypothyroidism Dyslipidemia Surgical History No pertinent past surgical history Family History Father Unknown family medical history Mother Unknown family medical history Son No problems noted. Daughter No problems noted. Daughter No problems noted. Daughter No problems noted. Social History Housing: Apartment Alcohol intake: never Patient Tobacco Use Status: Never used Tobacco e-Cigarette/Vaping Use: Never Used Second Hand Smoke Exposure: No Advance Directives Date on File: 09/23/22 service: No Current occupational status: retired Current occupational exposures/hazards: No Cognitive needs: Yes (needs daughter to translate , speaks only Moldovan ) Hearing needs: No Vision needs: Yes Questionnaire Medicare Wellness Checkup What is your age?: 80 or older What gender do you identify with?: male During the past 4 weeks, how much have you been bothered by emotional problems such as feeling anxious, depressed, irritable, sad or downhearted, and blue?: slightly During the past 4 weeks, has your physical & emotional health limited your social activities with family, friends, neighbors, or groups?: slightly During the past 4 weeks, how much bodily pain have you generally had?: moderate pain During the past 4 weeks, was someone available to help you if you needed & wanted help?: yes, as much as I wanted During the past 4 weeks, what was the hardest physical activity you could do for at least 2 minutes?: light Can you get to places out of walking distance without help? (For eg., can you travel alone on buses, taxis or drive your car?): No Can you go shopping for groceries or clothes without someone's help?: No Can you prepare your own meals?: No Can you do your housework without help?: No Because of any health problems, do you need the help of another person with your personal care needs such as eating, bathing, dressing or getting around the house?: Yes Can you handle your own money without help?: No During the past 4 weeks, how would you rate your health in general?: fair During the past 4 weeks how have things been going for you?: pretty well Are you having difficulties driving your car?: not applicable, I don't use a car Do you always fasten your seat belt when you are in a car?: yes, usually During past 4 weeks, have you been bothered by the following: seldom: Falling or dizzy when standing up, sometimes: Trouble eating well?, Teeth or denture problems? and Problems using the telephone? and often: Tiredness or fatigue? Have you fallen 2 or more times in the past year?: No Are you afraid of falling?: Yes Are you a smoker?: no During the past 4 weeks, how many drinks of wine, beer, or other alcoholic beverages did you have?: no alcohol at all Do you exercise for about 20 minutes 3 or more times a week?: no, I usually do not exercise this much Have you been given information to help with the following?: yes: Hazards in your house that might hurt you? and yes: Keeping track of your medications? How often do you have trouble taking medicines the way you have been told to take them?: I always take medicine as prescribed How confident are you that you can control & manage most of your health problems?: not very confident What is your race?: White Mini Mental State Exam (MMSE) Orientation What is the (year) (season) (date) (day) (month)?: year (fail), season (fail), date (fail), day (fail) and month (fail) Where are we (state) (county) (town or city) (hospital) (floor)?: state (ID), county (fail), town or city (fail) and hospital/clinic (fail) Score Score: 9 Activity of Daily Living Bathing - sponge bath, tub bath or shower: receives help in bathing more than one body part (or not bathed) Dressing - getting clothes from closets & drawers, including inner/outer garments & fasteners.: gets clothes & gets dressed without help, except for help tying shoes Transfer: moves in & out of bed and chair without help (may use support object) Continence: has occasional 'accidents' Feeding: feeds self without help Total Score: 1 Information obtained from: informant Using telephone: dependent Traveling: dependent Shopping: dependent Preparing meals: dependent Housework: dependent Taking medicine: dependent Managing money: dependent PHQ-9 Over the last 2 weeks, how often have you been bothered by any of the following problems? 1. Little interest or pleasure in doing things: not at all 2. Feeling down, depressed, or hopeless: not at all 3. Trouble falling or staying asleep, or sleeping too much: more than half the days 4. Feeling tired or having little energy: more than half the days 5. Poor appetite or overeating: several days 6. Feeling bad about yourself - or that you are a failure or have let yourself or your family down: not at all 7. Trouble concentrating on things, such as reading the newspaper or watching television: several days 8. Moving or speaking so slowly that other people could have noticed. Or the opposite - being so fidgety or restless that you have been moving around a lot more than usual: not at all 9. Thoughts that you would be better off or of hurting yourself in some way: not at all Total score: 6 Depression Screening Interpretation: Negative 40547 - PHQ-9 Billing: Yes Source: Developed by Drs. Fransico Stewart, Mila Perkins, Tapan Monreal and colleagues, with an educational jorge from [employer]. GEOVANY-7 AMB Questionnaire GEOVANY-7 Date GEOVANY - 7 assessed: 03/05/24 Feeling nervous, anxious, or on edge: 1 = Several days Not being able to stop or control worryin = Not at all Worrying too much about different things: 1 = Several days Trouble relaxin = Not at all Being so restless that it is hard to sit still: 0 = Not at all Becoming easily annoyed or irritable: 1 = Several days Feeling afraid as if something awful might happen: 0 = Not at all Total GEOVANY-7 score (0-4 normal; 5-9 mild; 10-14 moderate; 15-21 severe): 3 Source: Developed by Drs. Fransico Stewart, Tapan Crump and colleagues, with an educational jorge from [employer]. GEOVANY-7 Assessment Billing GEOVANY-7 Assessment Tool: GEOVANY-7 Assessment 11920 Physical Exam Vital Signs: Last Vital Signs Pulse 84 03/05/24 10:46 BP 140/64 H 03/05/24 10:46 Pulse Ox 96 03/05/24 10:46 Oxygen Delivery Method Room Air 03/05/24 10:46 BMI result Body Mass Index 40.4 Assessment & Plan Assessment & Plan (1) Encounter for subsequent annual wellness visit in Medicare patient: Code(s): Z00.00 - Encounter for general adult medical examination without abnormal findings Plan: Medical wellness checklist discussed with patient and daughter, reviewed and updated. Patient does not want to get any vaccinations, does not want to get any further testing for his eyes or his prostate, up-to-date with his advance care directive (2) Dyslipidemia: Code(s): E78.5 - Hyperlipidemia, unspecified Plan: Continue atorvastatin 80 mg daily (3) Acquired hypothyroidism: Code(s): E03.9 - Hypothyroidism, unspecified Plan: Continue levothyroxine 125 mcg taken once a day in a.m. (4) Essential hypertension: Code(s): I10 - Essential (primary) hypertension Plan: Continue lisinopril-HCTZ (5) Morbid obesity: Code(s): E66.01 - Morbid (severe) obesity due to excess calories Plan: Reinforced importance of following recommended diet and get some form of exercise on a daily basis at least walk after eating for 15 minutes. (6) Vaccination refused by patient: Code(s): Z28.21 - Immunization not carried out because of patient refusal Plan: Patient declines getting any further vaccinations (7) Elevated PSA, between 10 and less than 20 ng/ml: Code(s): R97.20 - Elevated prostate specific antigen [PSA] Plan: Patient does not want to get further testing, currently asymptomatic (8) Diabetes mellitus, without long-term current use of insulin: Code(s): E11.9 - Type 2 diabetes mellitus without complications Qualifiers: Diabetes mellitus type: type 2 Diabetes mellitus complication status: with hyperglycemia Qualified Code(s): E11.65 - Type 2 diabetes mellitus with hyperglycemia Plan: Currently on metformin 500 mg taken 1 tablet at night with supper, Orders: Orders Free T4 (Free Thyroxine) 08/17/24 E03.9 - Hypothyroidism, unspecified, E11.9 - Type 2 diabetes mellitus without complications, E66.01 - Morbid (severe) obesity due to excess calories, E78.5 - Hyperlipidemia, unspecified, I10 - Essential (primary) hypertension, Z00.00 - Encounter for general adult medical examination without abnormal findings Alanine Aminotransferase 08/17/24 E03.9 - Hypothyroidism, unspecified, E11.9 - Type 2 diabetes mellitus without complications, E66.01 - Morbid (severe) obesity due to excess calories, E78.5 - Hyperlipidemia, unspecified, I10 - Essential (primary) hypertension, Z00.00 - Encounter for general adult medical examination without abnormal findings Aspartate Amino Transferase 08/17/24 E03.9 - Hypothyroidism, unspecified, E11.9 - Type 2 diabetes mellitus without complications, E66.01 - Morbid (severe) obesity due to excess calories, E78.5 - Hyperlipidemia, unspecified, I10 - Essential (primary) hypertension, Z00.00 - Encounter for general adult medical examination without abnormal findings Complete Blood Count Auto Diff 08/17/24 E03.9 - Hypothyroidism, unspecified, E11.9 - Type 2 diabetes mellitus without complications, E66.01 - Morbid (severe) obesity due to excess calories, E78.5 - Hyperlipidemia, unspecified, I10 - Essential (primary) hypertension, Z00.00 - Encounter for general adult medical examination without abnormal findings Vitamin D 25-OH Total 08/17/24 E03.9 - Hypothyroidism, unspecified, E11.9 - Type 2 diabetes mellitus without complications, E66.01 - Morbid (severe) obesity due to excess calories, E78.5 - Hyperlipidemia, unspecified, I10 - Essential (primary) hypertension, Z00.00 - Encounter for general adult medical examination without abnormal findings Thyroid Stimulating Hormone 08/17/24 E03.9 - Hypothyroidism, unspecified, E11.9 - Type 2 diabetes mellitus without complications, E66.01 - Morbid (severe) obesity due to excess calories, E78.5 - Hyperlipidemia, unspecified, I10 - Essential (primary) hypertension, Z00.00 - Encounter for general adult medical examination without abnormal findings Lipid Panel 08/17/24 E03.9 - Hypothyroidism, unspecified, E11.9 - Type 2 diabetes mellitus without complications, E66.01 - Morbid (severe) obesity due to excess calories, E78.5 - Hyperlipidemia, unspecified, I10 - Essential (primary) hypertension, Z00.00 - Encounter for general adult medical examination without abnormal findings Basic Metabolic Panel Fasting 08/17/24 E03.9 - Hypothyroidism, unspecified, E11.9 - Type 2 diabetes mellitus without complications, E66.01 - Morbid (severe) obesity due to excess calories, E78.5 - Hyperlipidemia, unspecified, I10 - Essential (primary) hypertension, Z00.00 - Encounter for general adult medical examination without abnormal findings Hemoglobin A1c 08/17/24 E03.9 - Hypothyroidism, unspecified, E11.9 - Type 2 diabetes mellitus without complications, E66.01 - Morbid (severe) obesity due to excess calories, E78.5 - Hyperlipidemia, unspecified, I10 - Essential (primary) hypertension, Z00.00 - Encounter for general adult medical examination without abnormal findings Vitamin B12 and Folate 08/17/24 E03.9 - Hypothyroidism, unspecified, E11.9 - Type 2 diabetes mellitus without complications, E66.01 - Morbid (severe) obesity due to excess calories, E78.5 - Hyperlipidemia, unspecified, I10 - Essential (primary) hypertension, Z00.00 - Encounter for general adult medical examination without abnormal findings Quality Reporting (2019) Depression/Bipolar (159/160/161/177) PHQ-9: Total score: 6 Coding Level of Care Code Medicare Subsequent (G0439) Diagnoses Encounter for subsequent annual wellness visit in Medicare patient Z00.00 Dyslipidemia E78.5 Acquired hypothyroidism E03.9 Essential hypertension I10 Morbid obesity E66.01 Vaccination refused by patient Z28.21 Elevated PSA, between 10 and less than 20 ng/ml R97.20 Type 2 diabetes mellitus with hyperglycemia, without long-term current use of insulin E11.65 Diabetes mellitus type: type 2 Diabetes mellitus complication status: with hyperglycemia CPT Codes Advance Care Planning - Time spent: 16-45 minutes ([id number]) Additional Codes GEOVANY-7 Assessment Billing - GEOVANY-7 Assessment Tool: GEOVANY-7 Assessment 36085 ([id number]) Advance Care Planning Advance Care Planning discussion: Completed/Scanned Date of discussion: 09/23/22 Who was present: patient and daughter Forms completed: Health Care Proxy and MOLST Time spent: 16-45 minutes Actual minutes spent: 16
== END 2024-03-05 11:24 | disposition home or self-care (01) ==
LOC: HO.HMGC 10:38
PROVIDERS: PCP Internal Medicine; Visit Provider Internal Medicine
DX: Z00.00 Encounter for general adult medical examination without abnormal findings (principal); E66.01 Morbid (severe) obesity due to excess calories; E11.65 Type 2 diabetes mellitus with hyperglycemia; Z68.41 Body mass index [BMI] 40.0-44.9, adult; E78.5 Hyperlipidemia, unspecified; E03.9 Hypothyroidism, unspecified; I10 Essential (primary) hypertension; Z28.21 Immunization not carried out because of patient refusal; R97.20 Elevated prostate specific antigen [PSA]
CPT/HCPCS: 99497; G0439

== ENCOUNTER 2024-09-03 06:01 | Outpatient (REF) | payer MEDICARE, MEDICAID, SELFPAY ==
[2024-09-03 10:04] LABS: MANUAL DIFF FLAG NO
[2024-09-03 10:27] LABS: Estimated Average Glucose 154 mg/dL; Hemoglobin A1C 187.4116 umol/L; Total Hemoglobin (HGBA1C) 3558.3828 umol/L
[2024-09-03 10:28] LABS: Basophils Absolute Auto 0.1 X10*3/uL (0.0-0.2); Basophils Percent Auto 0.8 % (0-2); Eosinophils Absolute Auto 0.3 X10*3/uL (0.0-0.4); Eosinophils Percent Auto 3.3 % (0-4); Hematocrit 42.8 % (42.0-52.0); Hemoglobin 13.6 g/dl (14.0-18.0); Imm Gran Abs Auto 0.04 X10*3/uL (0.00-0.03); Imm Gran Pct Auto 0.5 % (0.0-0.4); Lymphocytes Absolute Auto 1.4 X10*3/uL (1.2-4.9); Mean Corpuscular HGB Conc 31.8 g/dl (31.0-36.0); Mean Corpuscular Hemoglobin 28.8 pg (27.0-33.0); Mean Corpuscular Volume 90.5 fL (80.0-98.0); Mean Platelet Volume 10.5 fL (9.4-12.4); Monocytes Absolute Auto 0.7 X10*3/uL (0.1-1.2); Monocytes Percent Auto 9.5 % (2-11); Neutrophils Percent Auto 66.9 % (45-73); Platelet Count 271 X10*3/uL (160-400); Red Blood Count 4.73 X10*6/uL (4.60-5.80); Red Cell Distribution Width 13.4 % (11.0-16.0); White Blood Count 7.5 X10*3/uL (4.8-10.8)
[2024-09-03 10:41] LABS: Alanine Aminotransferase 16 U/L (0-40); Anion Gap 14 (12-20); Aspartate Amino Transferase 26 U/L (5-37); Blood Urea Nitrogen 28 mg/dL (9-16); Calcium 10.3 mg/dL (8.4-10.2); Carbon Dioxide 27 mmol/L (22-29); Chloride 105 mmol/L (96-108); Cholesterol 104 mg/dL (<200); Estimated Glomerular Filt Rate 58; Glucose Fasting 135 mg/dL (60-99); HDL Cholesterol 35 mg/dL (>40); LDL Cholesterol Calculated 55 mg/dL (<100); Potassium 4.8 mmol/L (3.3-5.1); Sodium 141 mmol/L (135-145); Triglycerides 72 mg/dL (<150)
[2024-09-03 10:50] LABS: Free T4 (Free Thyroxine) 1.14 ng/dL (0.71-1.85); Thyroid Stimulating Hormone 0.54 uIU/mL (0.32-4.0); Vitamin D 25-OH Total 27.4 ng/mL (>30)
[2024-09-03 10:57] LABS: Folate 9.1 ng/mL (> or = 4.0); Vitamin B12 520 pg/mL (200-900)
== END 2024-09-03 06:02 | disposition home or self-care (01) ==
LOC: HO.HMGCLDS 06:01
PROVIDERS: PCP Internal Medicine; Visit Provider Internal Medicine
DX: Z00.00 Encounter for general adult medical examination without abnormal findings (principal); E11.9 Type 2 diabetes mellitus without complications; E66.01 Morbid (severe) obesity due to excess calories; I10 Essential (primary) hypertension; E03.9 Hypothyroidism, unspecified; E78.5 Hyperlipidemia, unspecified
CPT/HCPCS: 36415; 80048; 80061; 82306; 82607; 82746; 83036; 84439; 84443; 84450; 84460; 85025

== ENCOUNTER 2024-09-04 11:39 | Outpatient (AMB) | payer MEDICARE, MEDICAID, SELFPAY ==
[2024-09-04 11:56] VITALS: BP 164/74; PULSE 76; O2SAT 97; BMI 40.2
--- NOTE | 2024-09-04 11:56 | A.OFFPC_ITS ---
Vital Signs 09/04/24 11:56 Height 5 ft 2 in Weight 220 lb BMI 40.2 BP 164/74 H Blood Pressure Location Lt brachial Position Sitting Pulse 76 Pulse Source Pulse Oximeter Pulse Oximetry (%) 97 Oxygen Delivery Method Room Air Intake Visit Reasons: 6 month follow up Intake Note: Pt is here today for his 6mo. f/u Allergies No Known Allergies Allergy (Verified 09/05/24 02:01) Medication List - Last Reconciled 09/05/24 by Evon Ashton MD acetaminophen (Tylenol) 325 mg PO QID PRN aspirin (Adult Low Dose Aspirin) 81 mg PO DAILY atorvastatin 80 mg PO DAILY diaper,brief,adult,disposable (Jack[employer] Choice Comfort Protect Adult Diaper X- Large) Use As directed 3 times a day levothyroxine 125 mcg PO QAM lisinopril-hydrochlorothiazide 20-25 mg 1 tab PO DAILY metformin 500 mg PO QPM Tobacco use date assessed: 09/04/24 Fall risk assessment: No Falls in past year Last assessed Fall Risk: 09/04/24 Dental Screening Dental Screen Date: 09/04/24 Did you have a dental visit in the last 12 months?: Yes Did you have a dental problem in the last 6 months where you did not have access to dental care?: Yes Was dental information given to patient?: Patient has dentist HPI 6 month follow up HPI Details The patient is an 89-year-old male presenting with urinary incontinence and hypertension management. Urinary incontinence has been ongoing, specifically with urinary frequency and incomplete control, requiring pull-up diapers, which were not correctly provided. The patient uses pull-ups three to four times daily, primarily for urinary incontinence. This has not been formally evaluated by a urologist, as the patient is reluctant to pursue further investigations, such as a prostate examination, despite the suggestion of a potential underlying prostate issue. Hypertension has been a persistent issue for the patient, with today's reading at 164/74 mmHg. The patient is on a regimen of Lisinopril and Hydrochlorothiazide, but due to episodes of hypotension and associated weakness, the dosing has been inconsistent. Intermittent hypotension, reported as low as 58 mmHg systolic, was identified, with recommendations to adjust dosing based on symptomatology and readings. Recent adjustments involved halving doses due to perceived low blood pressure, which may correlate with feelings of weakness. Chronic conditions including diabetes and hypothyroidism are noted. Diabetes management includes Metformin, with improved Hemoglobin A1c of 7%, suggesting improved glycemic control. Anemia has shown improvement in recent labs with a hemoglobin of 13.6 g/dL. The BUN is elevated, indicating possible dehydration or kidney impairment, likely exacerbated by insufficient fluid intake, which may be influenced by diuretic therapy. Vitamin D deficiency is present, with a level of 27 ng/mL, although supplementation adherence is poor. [facility] Medical History Urinary incontinence Diabetes mellitus, without long-term current use of insulin Elevated PSA, between 10 and less than 20 ng/ml Vitamin D deficiency Vaccination refused by patient Gait instability TIA (transient ischemic attack) Iron deficiency anemia due to chronic blood loss Acute erosive gastritis Morbid obesity Essential hypertension Acquired hypothyroidism Dyslipidemia Surgical History No pertinent past surgical history Family History Father Unknown family medical history Mother Unknown family medical history Son No problems noted. Daughter No problems noted. Daughter No problems noted. Daughter No problems noted. Social History Housing: Apartment Alcohol intake: never Patient Tobacco Use Status: Never used Tobacco e-Cigarette/Vaping Use: Never Used Second Hand Smoke Exposure: No Advance Directives Date on File: 09/23/22 service: No Current occupational status: retired Current occupational exposures/hazards: No Cognitive needs: Yes (needs daughter to translate , speaks only Jamaican ) Hearing needs: No Vision needs: Yes Questionnaire PHQ-9 Over the last 2 weeks, how often have you been bothered by any of the following problems? Depression Screening Interpretation: Negative Depression Screening Done: Yes Source: Developed by Drs. Fransico Stewart, Mila Perkins, Tapan Monreal and colleagues, with an educational jorge from [employer]. Thrive Questionnaire Date Thrive assessed: 09/28/23 I am a: Parent/Caregiver What is your living situation today?: I have a steady place to live Within the past 12 months, did the food you bought not last and you didn't have the money to get more?: Never true Within the past 12 months, did you worry whether your food would run out before you got money to buy more?: Never true Do you have trouble paying for medicines?: No Do you have trouble getting transportation to medical appointments?: No Do you have trouble paying your heating and electricity bill?: No Do you have trouble taking care of your child, family member or friend?: I choose not to answer this question Do you have trouble with day-to-day activities such as bathing, preparing meals, shopping, managing finances, etc.?: Yes Are you currently unemployed and looking for a job?: No Are you interested in more education?: No Please select the resources that you would like help with: None Currently or been in a relationship where the following occur: No concerns reported THRIVE Score: 0 AUDIT C Alcohol Use Questionnaire (AUDIT-C) 1. How often do you have a drink containing alcohol?: Never Total Score: 0 GEOVANY-7 AMB Questionnaire GEOVANY-7 Date GEOVANY - 7 assessed: 03/05/24 Feeling nervous, anxious, or on edge: 0 = Not at all Not being able to stop or control worryin = Not at all Worrying too much about different things: 0 = Not at all Trouble relaxin = Not at all Being so restless that it is hard to sit still: 0 = Not at all Becoming easily annoyed or irritable: 0 = Not at all Feeling afraid as if something awful might happen: 0 = Not at all Total GEOVANY-7 score (0-4 normal; 5-9 mild; 10-14 moderate; 15-21 severe): 0 Source: Developed by Drs. Fransico Stewart, Mila Perkins, Tapan Monreal and colleagues, with an educational jorge from [employer]. Review of Systems Const Denies difficulty sleeping, Denies fever(s), Denies headache(s) and Reports weight loss Eyes Denies change in vision ENT Denies Normal hearing present (Unable to hear whispered voice), Denies dizziness, Denies headache(s), Denies nasal congestion, Denies nasal discharge and Denies sore throat Card Denies chest pain, Denies lightheadedness, Denies palpitations and Denies dyspnea Resp Denies chest congestion, Denies cough and Denies dyspnea GI Denies abdominal pain, Denies change in bowel habits and Denies heartburn Denies oliguria, Denies dysuria, Denies urinary hesitancy and Denies urinary urgency Musc Reports arthralgias and Reports stiffness Skin/Breast Denies rash Neuro Denies Normal hearing present (Unable to hear whispered voice), Denies dizziness, Denies headache(s) and Denies Sensory deficit (Neuro) Psych Denies anxiety, Denies change in appetite, Denies depression and Denies irritability Endo Denies polydipsia, Denies polyuria and Denies palpitations Ramo/Lymph Denies easy bleeding and Denies easy bruising Aller/Immun Reports no additional complaints Physical exam (Primary Care) Vital Signs: Last Vital Signs Pulse 76 09/04/24 11:56 BP 164/74 H 09/04/24 11:56 Pulse Ox 97 09/04/24 11:56 Oxygen Delivery Method Room Air 09/04/24 11:56 BMI result Body Mass Index 40.2 BMI Assessment/Plan discussion: High BMI High, discussed plan: lifestyle, weight reduction, dietary and physical activity Tobacco/Smoking Status: Tobacco use Status Tobacco use date assessed 09/04/24 09/04/24 12:00 Patient Tobacco Use Status Never used Tobacco 09/04/24 12:00 e-Cigarette/Vaping Use Never Used 09/04/24 12:00 PHQ-9: PHQ-9 Score PHQ-9: Total score 6 09/05/24 01:58 Depression Screening Interpretation: Negative Thrive Assessment: Date of Thrive Assessment Date Thrive assessed 09/28/23 09/04/24 12:00 Currently or been in a relationship where the following occur: No concerns reported Const General: comfortable and no acute distress Nutritional Appearance: obese morbidly obese Orientation/consciousness: patient oriented x3 Limitations: ambulation with cane HENMT Head: Yes normal to inspection and Yes normocephalic Ears: EAC's normal General nose exam: Normal external nose present and No nasal discharge present Mouth: Normal oral and palatal mucosa present and moist mucous membranes Neck Neck: Yes full ROM and Yes no lymphadenopathy Thyroid: Thyroid normal Carotids: normal carotid upstroke Resp Auscultation: clear to auscultation bilaterally Cardio Rate: regular rate Rhythm: regular rhythm Heart sounds: S1 normal heart sound present and S2 normal heart sound present GI Inspection: Yes normal to inspection, Yes Abdominal panniculus present and Yes obesity Palpation (GI): Soft to palpation Auscultation: normal bowel sounds General: Yes no CVA tenderness Back/Spine/Pelvis Back: no CVA tenderness and No back tenderness Skin General skin exam: no rashes or lesions noted Neuro General: patient oriented x3, moves all extremities, Normal light touch and pain sensation, no focal motor deficits and CN's II-XI intact bilaterally Cranial nerves: No Normal hearing present (Unable to hear whispered voice) Sensory Exam: No Sensory deficit (Neuro) Extrem General: Yes normal to inspection, Yes full ROM, Yes no joint enlargement, Yes no pedal edema and Yes no calf tenderness Results Reviewed Results Reviewed: Name: Saul Aldridge Age/Sex: 89/M : 1935 Unit#: [id number] Attend Dr: Evon Ashton MD Re09/03/24 Status: DEP REF Location: [facility] Disch: SPEC : [id number] BRITTANI: 09/03/24 STATUS: COMP REQ : [id number] RECD: 09/03/[address]: Evon Ashton MD COMP: 09/03/24 ENTERED: 09/03/24 [facility] DR: ORDERED: CBC Auto Diff Test Result Flag Reference WBC 7.5 4.8-10.8 X10*3/uL RBC 4.73 4.60-5.80 X10*6/uL HGB 13.6 L 14.0-18.0 g/dl HCT 42.8 42.0-52.0 % MCV 90.5 80.0-98.0 fL MCH 28.8 27.0-33.0 pg MCHC 31.8 31.0-36.0 g/dl RDW 13.4 11.0-16.0 % PLT 271 160-400 X10*3/uL MPV 10.5 9.4-12.4 fL Neut Pct Auto 66.9 45-73 % ImGran Pct Auto 0.5 H 0.0-0.4 % Lymp Pct Auto 19.0 L 20-40 % [place]owndes Pct Auto 9.5 2-11 % Eos Pct Auto 3.3 0-4 % Baso Pct Auto 0.8 0-2 % NRBC Pct Auto 0.0 0.0-0.2 /100WBC ANC Neut Abs # 5.0 2.0-8.3 x10*3/uL ImGran Abs Auto 0.04 H 0.00-0.03 X10*3/uL Lymph Abs Auto 1.4 1.2-4.9 X10*3/uL [place] Abs Auto 0.7 0.1-1.2 X10*3/uL Eos Abs Auto 0.3 0.0-0.4 X10*3/uL Baso Abs Auto 0.1 0.0-0.2 X10*3/uL NRBC Abs Auto 0.000 0.0-0.012 X10*3/uL Name: Saul Aldridge Age/Sex: 89/M : 1935 Unit#: [id number] Attend Dr: Evon Ashton MD Re09/03/24 Status: DEP REF Location: [facility] Disch: SPEC : [id number] BRITTANI: 09/03/24 STATUS: COMP REQ : [id number] RECD: 09/03/[address] [facility] [address]: Evon Ashton MD COMP: 09/03/24 ENTERED: 09/03/24 [facility] DR: ORDERED: Met Prof Fast, AST, ALT, Lipid Panel, Vitamin D 25-OH, Free T4, TSH Test Result Flag Reference Sodium 141 135-145 mmol/L Potassium 4.8 3.3-5.1 mmol/L CL 105 96-108 mmol/L CO2 27 22-29 mmol/L Gap 14 12-20 BUN 28 H 9-16 mg/dL Creat 1.19 0.5-1.4 mg/dL eGFR 58 Chronic Kidney Disease: Estimated GFR < 60 mL/min/1.73m2 Severe Kidney Disease: Estimated GFR < 15 mL/min/1.73m2 FBS 135 H 60-99 mg/dL A fasting glucose of 126 mg/dl or greater on more than one occasion is considered diagnostic of diabetes. CA 10.3 # H 8.4-10.2 mg/dL AST (GOT) 26 5-37 U/L ALT (GPT) 16 0-40 U/L Triglyceride 72 <150 mg/dL Desirable Triglyceride: less than 150 mg/dL Borderline High Triglyceride 150-199 mg/dL High Triglyceride: 200-499 mg/dL Very High Triglyceride: greater than or equal to 5OO mg/dL Cholesterol 104 <200 mg/dL Desirable Cholesterol: less than 200 mg/dL Borderline High Cholesterol: 200-239 mg/dL High Cholesterol: greater than 239 mg/dL LDL Calculated 55 <100 mg/dL Desirable LDL: less than 100 mg/dL Near Optimal/Above Optimal LDL: 110-129 mg/dL Borderline High LDL: 130-159 mg/dL High LDL: 160-189 mg/dL Very High LDL: greater than or equal to 190 mg/dL HDL 35 L >40 mg/dL Desirable HDL: greater than 40 mg/dL Note: This HDL assay may give artificially low results in patients with liver disease. Vit D 25-OH Tot 27.4 L >30 ng/mL Health Based Reference Values* < 20 ng/mL Deficient 20-30 ng/mL Insufficient > 30 ng/mL Sufficient *Rory BURGESS. N Engl J Med. 2007;[id number]:266-280 Care must be taken in interpreting Vitamin D results from different laboratories and methodologies. Published data demonstrated that results from patients undergoing hemodialysis may show a negative bias when tested with various automated 25-OH vitamin D assays when compared to LC-MS/MS. When testing samples from patients whose predominant form of Vitamin D is Vitamin D2, such as patients receiving Vitamin D2 supplementation, results that are subtherapeutic should be confirmed with another method such as LC-MS/MS. Free T4 1.14 0.71-1.85 ng/dL TSH 3rd Gen. 0.54 0.32-4.0 uIU/mL TSH 3rd Generation ([facility]) Laboratory Tests 03/02/24 09/03/24 07:10 06:05 Estimat Average Glucose 154 Hemoglobin A1c % 7.0 H Microalb/Creat Ratio 15.6 Coding Level of Care Code Est Pt Level 4 (31936) Complex EM visit Add On G2211 Diagnoses Urinary incontinence, unspecified type R32 Urinary Incontinence type: unspecified incontinence Type 2 diabetes mellitus with hyperglycemia, without long-term current use of insulin E11.65 Diabetes mellitus complication status: with hyperglycemia Diabetes mellitus type: type 2 Essential hypertension I10 Acquired hypothyroidism E03.9 Dyslipidemia E78.5 Vaccination refused by patient Z28.21 Assessment & Plan Assessment & Plan (1) Urinary incontinence: Code(s): R32 - Unspecified urinary incontinence Category: Medical Qualifiers: Urinary Incontinence type: unspecified incontinence Qualified Code(s): R32 - Unspecified urinary incontinence (2) Diabetes mellitus, without long-term current use of insulin: Code(s): E11.9 - Type 2 diabetes mellitus without complications Category: Medical Qualifiers: Diabetes mellitus complication status: with hyperglycemia Diabetes mellitus type: type 2 Qualified Code(s): E11.65 - Type 2 diabetes mellitus with hyperglycemia (3) Essential hypertension: Code(s): I10 - Essential (primary) hypertension Category: Medical (4) Acquired hypothyroidism: Code(s): E03.9 - Hypothyroidism, unspecified Category: Medical (5) Dyslipidemia: Code(s): E78.5 - Hyperlipidemia, unspecified Category: Medical (6) Vaccination refused by patient: Code(s): Z28.21 - Immunization not carried out because of patient refusal Category: Medical Plan - Urinary Incontinence: Continue current use of pull-up diapers. No urological referral as per patient refusal. - Hypertension: Reinforce adherence to Lisinopril and Hydrochlorothiazide. Adjust dosage based on home blood pressure monitoring. - Diabetes Mellitus Type 2: Continue Metformin. Monitor renal function regularly. refuses to have another eye exam - Anemia: Continue dietary intake contributing to improvement. No additional intervention required. - Chronic Kidney Disease: Encourage increased fluid intake and monitor renal function. - Vitamin D Deficiency: Start 2,000 IU of Vitamin D3 orally daily, reassess in winter. - Arthralgia: Continue current management; self-reported use of acetaminophen or similar [id number] medications as needed for pain. - Hypercholesterolemia: Encourage physical activity within tolerant limits. - Osteoporosis Risk: Emphasize importance of Vitamin D supplementation for bone health. Patient was informed and verbally consented to the use of an ambient scribe for clinic note documentation during this visit. Orders: Orders Lipid Panel 02/14/25 E03.9 - Hypothyroidism, unspecified, E11.65 - Type 2 diabetes mellitus with hyperglycemia, E78.5 - Hyperlipidemia, unspecified, I10 - Essential (primary) hypertension, R32 - Unspecified urinary incontinence Alanine Aminotransferase 02/14/25 E03.9 - Hypothyroidism, unspecified, E11.65 - Type 2 diabetes mellitus with hyperglycemia, E78.5 - Hyperlipidemia, unspecified, I10 - Essential (primary) hypertension, R32 - Unspecified urinary incontinence Complete Blood Count Auto Diff 02/14/25 E03.9 - Hypothyroidism, unspecified, E11.65 - Type 2 diabetes mellitus with hyperglycemia, E78.5 - Hyperlipidemia, unspecified, I10 - Essential (primary) hypertension, R32 - Unspecified urinary incontinence Free T4 (Free Thyroxine) 02/14/25 E03.9 - Hypothyroidism, unspecified, E11.65 - Type 2 diabetes mellitus with hyperglycemia, E78.5 - Hyperlipidemia, unspecified, I10 - Essential (primary) hypertension, R32 - Unspecified urinary incontinence Hemoglobin A1c 02/14/25 E03.9 - Hypothyroidism, unspecified, E11.65 - Type 2 diabetes mellitus with hyperglycemia, E78.5 - Hyperlipidemia, unspecified, I10 - Essential (primary) hypertension, R32 - Unspecified urinary incontinence Microalbumin, Random (w Creat) 02/14/25 E03.9 - Hypothyroidism, unspecified, E11.65 - Type 2 diabetes mellitus with hyperglycemia, E78.5 - Hyperlipidemia, unspecified, I10 - Essential (primary) hypertension, R32 - Unspecified urinary incontinence Aspartate Amino Transferase 02/14/25 E03.9 - Hypothyroidism, unspecified, E11.65 - Type 2 diabetes mellitus with hyperglycemia, E78.5 - Hyperlipidemia, unspecified, I10 - Essential (primary) hypertension, R32 - Unspecified urinary i ncontinence Basic Metabolic Panel Fasting 02/14/25 E03.9 - Hypothyroidism, unspecified, E11.65 - Type 2 diabetes mellitus with hyperglycemia, E78.5 - Hyperlipidemia, unspecified, I10 - Essential (primary) hypertension, R32 - Unspecified urinary incontinence Thyroid Stimulating Hormone 02/14/25 E03.9 - Hypothyroidism, unspecified, E11.65 - Type 2 diabetes mellitus with hyperglycemia, E78.5 - Hyperlipidemia, unspecified, I10 - Essential (primary) hypertension, R32 - Unspecified urinary incontinence
== END 2024-09-04 14:37 | disposition home or self-care (01) ==
PROVIDERS: PCP Internal Medicine; Visit Provider Internal Medicine
DX: R32 Unspecified urinary incontinence (principal); E11.65 Type 2 diabetes mellitus with hyperglycemia; I10 Essential (primary) hypertension; E03.9 Hypothyroidism, unspecified; E78.5 Hyperlipidemia, unspecified; Z28.21 Immunization not carried out because of patient refusal

== ENCOUNTER → 2024-09-04 11:39 | Outpatient (BNVA) | payer MEDICARE, MEDICAID, SELFPAY | PROVIDERS: PCP Internal Medicine; Visit Provider Internal Medicine | DX: R32 Unspecified urinary incontinence (principal); E11.65 Type 2 diabetes mellitus with hyperglycemia; I10 Essential (primary) hypertension; E03.9 Hypothyroidism, unspecified; E78.5 Hyperlipidemia, unspecified | CPT/HCPCS: 96127; 99212 ==

== ENCOUNTER 2025-03-04 06:07 | Outpatient (REF) | payer MEDICARE, MEDICAID, SELFPAY ==
[2025-03-04 10:10] LABS: MANUAL DIFF FLAG NO
[2025-03-04 10:32] LABS: Basophils Absolute Auto 0.1 X10*3/uL (0.0-0.2); Basophils Percent Auto 0.9 % (0-2); Eosinophils Absolute Auto 0.3 X10*3/uL (0.0-0.4); Eosinophils Percent Auto 3.6 % (0-4); Hematocrit 40.2 % (42.0-52.0); Hemoglobin 12.6 g/dl (14.0-18.0); Imm Gran Abs Auto 0.05 X10*3/uL (0.00-0.03); Imm Gran Pct Auto 0.7 % (0.0-0.4); Lymphocytes Absolute Auto 1.4 X10*3/uL (1.2-4.9); Lymphocytes Percent Auto 20.3 % (20-40); Mean Corpuscular HGB Conc 31.3 g/dl (31.0-36.0); Mean Corpuscular Hemoglobin 28.6 pg (27.0-33.0); Mean Corpuscular Volume 91.4 fL (80.0-98.0); Mean Platelet Volume 10.9 fL (9.4-12.4); Monocytes Absolute Auto 0.8 X10*3/uL (0.1-1.2); Monocytes Percent Auto 11.4 % (2-11); Neutrophils Absolute Auto 4.4 x10*3/uL (2.0-8.3); Neutrophils Percent Auto 63.1 % (45-73); Platelet Count 238 X10*3/uL (160-400); Red Cell Distribution Width 13.5 % (11.0-16.0)
[2025-03-04 10:38] LABS: Estimated Average Glucose 154 mg/dL; Hemoglobin A1C 176.7396 umol/L; Total Hemoglobin (HGBA1C) 3358.1382 umol/L
[2025-03-04 10:52] LABS: Alanine Aminotransferase 14 U/L (0-40); Anion Gap 14 (12-20); Aspartate Amino Transferase 27 U/L (5-37); Blood Urea Nitrogen 28 mg/dL (9-16); Calcium 9.4 mg/dL (8.4-10.2); Carbon Dioxide 23 mmol/L (22-29); Chloride 108 mmol/L (96-108); Cholesterol 113 mg/dL (<200); Estimated Glomerular Filt Rate > 60; Glucose Fasting 148 mg/dL (60-99); HDL Cholesterol 32 mg/dL (>40); LDL Cholesterol Calculated 69 mg/dL (<100); Potassium 4.6 mmol/L (3.3-5.1); Sodium 140 mmol/L (135-145); Triglycerides 64 mg/dL (<150)
[2025-03-04 11:10] LABS: Creatinine Urine 59.54 mg/dL; Microalbum/Creatinine Ratio Ur 25.1 ug/mg cr (<30)
[2025-03-04 11:12] LABS: Free T4 (Free Thyroxine) 1.28 ng/dL (0.71-1.85)
== END 2025-03-04 06:08 | disposition home or self-care (01) ==
LOC: HO.HMGCLDS 06:07
PROVIDERS: PCP Internal Medicine; Visit Provider Internal Medicine
DX: E03.9 Hypothyroidism, unspecified (principal); E78.5 Hyperlipidemia, unspecified; I10 Essential (primary) hypertension; E11.65 Type 2 diabetes mellitus with hyperglycemia; R32 Unspecified urinary incontinence
CPT/HCPCS: 36415; 80048; 80061; 82043; 82570; 83036; 84439; 84443; 84450; 84460; 85025

== ENCOUNTER 2025-03-06 10:35 | Outpatient (AMB) | payer MEDICARE, MEDICAID, SELFPAY ==
[2025-03-06 11:02] VITALS: BP 110/80; PULSE 67; RESP 20; TEMP 36.5; O2SAT 95; BMI 41.5
--- NOTE | 2025-03-06 11:02 | A.OFFVIS_ITS ---
Intake Vital Signs 03/06/25 11:02 Height 5 ft 2 in Intake Visit Reasons: SWV G0439 Intake Note: Pt is here today for his SWV Allergies No Known Allergies Allergy (Verified 03/06/25 11:03) [facility] Medical History Urinary incontinence Diabetes mellitus, without long-term current use of insulin Elevated PSA, between 10 and less than 20 ng/ml Vitamin D deficiency Vaccination refused by patient Gait instability TIA (transient ischemic attack) Iron deficiency anemia due to chronic blood loss Acute erosive gastritis Morbid obesity Essential hypertension Acquired hypothyroidism Dyslipidemia Surgical History No pertinent past surgical history Family History Father Unknown family medical history Mother Unknown family medical history Son No problems noted. Daughter No problems noted. Daughter No problems noted. Daughter No problems noted. Social History Housing: Apartment Alcohol intake: never Patient Tobacco Use Status: Never used Tobacco e-Cigarette/Vaping Use: Never Used Second Hand Smoke Exposure: No Advance Directives Date on File: 09/23/22 service: No Current occupational status: retired Current occupational exposures/hazards: No Cognitive needs: Yes (needs daughter to translate , speaks only Dutch ) Hearing needs: No Vision needs: Yes Questionnaire PHQ-9 Over the last 2 weeks, how often have you been bothered by any of the following problems? 1. Little interest or pleasure in doing things: several days 2. Feeling down, depressed, or hopeless: not at all 3. Trouble falling or staying asleep, or sleeping too much: several days 4. Feeling tired or having little energy: several days 5. Poor appetite or overeating: not at all 6. Feeling bad about yourself - or that you are a failure or have let yourself or your family down: not at all 7. Trouble concentrating on things, such as reading the newspaper or watching television: several days 8. Moving or speaking so slowly that other people could have noticed. Or the opposite - being so fidgety or restless that you have been moving around a lot more than usual: not at all 9. Thoughts that you would be better off or of hurting yourself in some way: not at all Total score: 4 Source: Developed by Drs. Fransico Stewart, Mila Perkins, Tapan Monreal and colleagues, with an educational jorge from [employer]. Quality Reporting (2019) Depression/Bipolar (159/160/161/177) PHQ-9: Total score: 4 Coding
--- NOTE | 2025-03-06 11:09 | MHC.PC.OV ---
Vital Signs 03/06/25 11:02 Height 5 ft 2 in Weight 227 lb BMI 41.5 BP 110/80 Blood Pressure Location Lt brachial Position Sitting Respiration 20 Pulse 67 Pulse Source Pulse Oximeter Temp 97.7 F Temp Source Oral Pulse Oximetry (%) 95 Oxygen Delivery Method Room Air Intake Visit Reasons: Pt is here today for his PE Intake Note: Pt is here today for his PE Allergies No Known Allergies Allergy (Verified 03/06/25 11:37) Medication List - Last Reconciled 03/06/25 by Evon Ashton MD acetaminophen (Tylenol) 325 mg PO QID PRN aspirin (Adult Low Dose Aspirin) 81 mg PO DAILY atorvastatin 80 mg PO DAILY cholecalciferol (vitamin D3) 50 mcg PO DAILY diaper,brief,adult,disposable (Gilbert Choice Comfort Protect Adult Diaper X-Large) Use As directed 3 times a day levothyroxine 125 mcg PO QAM lisinopril-hydrochlorothiazide 20-25 mg 1 tab PO DAILY metformin 500 mg PO QPM [Pull-ups use As directed NS] [Pull-ups briefs As directed NS] Tobacco use date assessed: 03/06/25 Fall risk assessment: No Falls in past year Last assessed Fall Risk: 03/06/25 Dental Screening Dental Screen Date: 03/06/25 Did you have a dental visit in the last 12 months?: Yes Did you have a dental problem in the last 6 months where you did not have access to dental care?: Yes Was dental information given to patient?: Patient has dentist HPI HPI Comments History of Present Illness Details 89-year-old male with history of dyslipidemia, type 2 diabetes mellitus, hypothyroidism, anemia, elevated PSA level morbid obesity, and hypertension, here today for his physical exam. He has been taking his medicines as directed, Dr. Franco henson, but she states that he has really been noncompliant with diet and does not get up much to do any real form of exercise. He however does not have any complaints, has a good appetite. Latest fasting labs done showed hemoglobin A1c at 7%, with normal fasting lipids, and thyroid levels. He however still remains anemic . Has no overt signs of bleeding. Has history of erosive gastritis, current now currently asymptomatic. Patient however does not want to do any colon cancer screening either colonoscopy or Cologuard testing. You also refuses to do any eye exams, or get any vaccines [facility] Medical History (Updated 03/06/25 @ 11:48 by Evon Ashton MD) Anemia Vitamin D deficiency Urinary incontinence Diabetes mellitus, without long-term current use of insulin Elevated PSA, between 10 and less than 20 ng/ml Vaccination refused by patient Gait instability TIA (transient ischemic attack) Iron deficiency anemia due to chronic blood loss Acute erosive gastritis Morbid obesity Essential hypertension Acquired hypothyroidism Dyslipidemia Surgical History No pertinent past surgical history Family History Father Unknown family medical history Mother Unknown family medical history Son No problems noted. Daughter No problems noted. Daughter No problems noted. Daughter No problems noted. Social History Housing: Apartment Alcohol intake: never Patient Tobacco Use Status: Never used Tobacco e-Cigarette/Vaping Use: Never Used Second Hand Smoke Exposure: No Advance Directives Date on File: 09/23/22 service: No Current occupational status: retired Current occupational exposures/hazards: No Cognitive needs: Yes (needs daughter to translate , speaks only Telugu ) Hearing needs: No Vision needs: Yes Questionnaire PHQ-9 Over the last 2 weeks, how often have you been bothered by any of the following problems? 1. Little interest or pleasure in doing things: several days 2. Feeling down, depressed, or hopeless: not at all 3. Trouble falling or staying asleep, or sleeping too much: several days 4. Feeling tired or having little energy: several days 5. Poor appetite or overeating: not at all 6. Feeling bad about yourself - or that you are a failure or have let yourself or your family down: not at all 7. Trouble concentrating on things, such as reading the newspaper or watching television: several days 8. Moving or speaking so slowly that other people could have noticed. Or the opposite - being so fidgety or restless that you have been moving around a lot more than usual: not at all 9. Thoughts that you would be better off or of hurting yourself in some way: not at all Total score: 4 Depression Screening Interpretation: Negative Depression Screening Done: Yes 77958 - PHQ-9 Billing: Yes Source: Developed by Drs. Fransico Stewart, Mila Perkins, Tapan Monreal and colleagues, with an educational jorge from [employer]. Thrive Questionnaire Date Thrive assessed: 03/06/25 I am a: Patient What is your living situation today?: I have a steady place to live Within the past 12 months, did the food you bought not last and you didn't have the money to get more?: Never true Within the past 12 months, did you worry whether your food would run out before you got money to buy more?: Never true Do you have trouble paying for medicines?: No Do you have trouble getting transportation to medical appointments?: No Do you have trouble paying your heating and electricity bill?: No Do you have trouble taking care of your child, family member or friend?: No Do you have trouble with day-to-day activities such as bathing, preparing meals, shopping, managing finances, etc.?: No Are you currently unemployed and looking for a job?: No Currently or been in a relationship where the following occur: No concerns reported THRIVE Score: 0 GEOVANY-7 AMB Questionnaire GEOVANY-7 Date GEOVANY - 7 assessed: 03/05/24 Source: Developed by Drs. Fransico Stewart, Mila Perkins, Tapan Monreal and colleagues, with an educational jorge from [employer]. Review of Systems Const Denies difficulty sleeping, Denies fever(s), Denies headache(s) and Reports weight loss Eyes Denies change in vision ENT Denies Normal hearing present (Unable to hear whispered voice), Denies dizziness, Denies headache(s), Denies nasal congestion, Denies nasal discharge and Denies sore throat Card Denies chest pain, Denies lightheadedness, Denies palpitations and Denies dyspnea Resp Denies chest congestion, Denies cough and Denies dyspnea GI Denies abdominal pain, Denies change in bowel habits and Denies heartburn Denies oliguria, Denies dysuria, Denies urinary hesitancy and Denies urinary urgency Musc Reports arthralgias and Reports stiffness Skin/Breast Denies rash Neuro Denies Normal hearing present (Unable to hear whispered voice), Denies dizziness, Denies headache(s) and Denies Sensory deficit (Neuro) Psych Denies anxiety, Denies change in appetite, Denies depression and Denies irritability Endo Denies polydipsia, Denies polyuria and Denies palpitations Ramo/Lymph Denies easy bleeding and Denies easy bruising Aller/Immun Reports no additional complaints Physical exam (Primary Care) Vital Signs: Last Vital Signs Temp 97.7 F 03/06/25 11:02 Pulse 67 03/06/25 11:02 Resp 20 03/06/25 11:02 BP 110/80 03/06/25 11:02 Pulse Ox 95 03/06/25 11:02 Oxygen Delivery Method Room Air 03/06/25 11:02 BMI result Body Mass Index 41.5 BMI Assessment/Plan discussion: High BMI High, discussed plan: lifestyle, weight reduction, dietary and physical activity Tobacco/Smoking Status: Tobacco use Status Tobacco use date assessed 03/06/25 03/06/25 11:17 Patient Tobacco Use Status Never used Tobacco 03/06/25 11:17 e-Cigarette/Vaping Use Never Used 03/06/25 11:17 PHQ-9: PHQ-9 Score PHQ-9: Total score 4 03/12/25 02:14 Depression Screening Interpretation: Negative Thrive Assessment: Date of Thrive Assessment Date Thrive assessed 03/06/25 03/06/25 11:17 Currently or been in a relationship where the following occur: No concerns reported Const General: comfortable and no acute distress Nutritional Appearance: obese morbidly obese Orientation/consciousness: patient oriented x3 Limitations: ambulation with cane HENMT Head: Yes normal to inspection and Yes normocephalic Ears: EAC's normal General nose exam: Normal external nose present and No nasal discharge present Mouth: Normal oral and palatal mucosa present and moist mucous membranes Neck Neck: Yes full ROM and Yes no lymphadenopathy Thyroid: Thyroid normal Carotids: normal carotid upstroke Resp Auscultation: clear to auscultation bilaterally Cardio Rate: regular rate Rhythm: regular rhythm Heart sounds: S1 normal heart sound present and S2 normal heart sound present GI Inspection: Yes normal to inspection, Yes Abdominal panniculus present and Yes obesity Palpation (GI): Soft to palpation Auscultation: normal bowel sounds General: Yes no CVA tenderness Back/Spine/Pelvis Back: no CVA tenderness and No back tenderness Skin General skin exam: no rashes or lesions noted Neuro General: patient oriented x3, moves all extremities, Normal light touch and pain sensation, no focal motor deficits and CN's II-XI intact bilaterally Cranial nerves: No Normal hearing present (Unable to hear whispered voice) Sensory Exam: No Sensory deficit (Neuro) Extrem General: Yes normal to inspection, Yes full ROM, Yes no joint enlargement, Yes no pedal edema and Yes no calf tenderness Results Reviewed Results Reviewed: manuel: Saul Aldridge Age/Sex: 89/M : 1935 Unit#: [id number] Attend Dr: Evon Ashton MD Re03/04/25 Status: DEP REF Location: [facility] Disch: SPEC : [id number] BRITTANI: 03/04/25 STATUS: COMP REQ : [id number] RECD: 03/04/[address]: Evon Ashton MD COMP: 03/04/25 ENTERED: 03/04/[address] [facility] [address]: ORDERED: CBC Auto Diff Test Result Flag Reference WBC 7.0 4.8-10.8 X10*3/uL RBC 4.40 L 4.60-5.80 X10*6/uL HGB 12.6 L 14.0-18.0 g/dl HCT 40.2 L 42.0-52.0 % MCV 91.4 80.0-98.0 fL MCH 28.6 27.0-33.0 pg MCHC 31.3 31.0-36.0 g/dl RDW 13.5 11.0-16.0 % PLT 238 160-400 X10*3/uL MPV 10.9 9.4-12.4 fL Neut Pct Auto 63.1 45-73 % ImGran Pct Auto 0.7 H 0.0-0.4 % Lymp Pct Auto 20.3 20-40 % [facility] Pct Auto 11.4 H 2-11 % Eos Pct Auto 3.6 0-4 % Baso Pct Auto 0.9 0-2 % NRBC Pct Auto 0.0 0.0-0.2 /100WBC ANC Neut Abs # 4.4 2.0-8.3 x10*3/uL ImGran Abs Auto 0.05 H 0.00-0.03 X10*3/uL Lymph Abs Auto 1.4 1.2-4.9 X10*3/uL [facility] Abs Auto 0.8 0.1-1.2 X10*3/uL Eos Abs Auto 0.3 0.0-0.4 X10*3/uL Baso Abs Auto 0.1 0.0-0.2 X10*3/uL NRBC Abs Auto 0.000 0.0-0.012 X10*3/uL Name: Saul Aldridge Age/Sex: 89/M : 1935 Unit#: [id number] Attend Dr: Evon Ashton MD Re03/04/25 Status: DEP [facility] Disch: SPEC : [id number] BRITTANI: 03/04/25 STATUS: COMP REQ : [id number] RECD: 03/04/25-[address]: Evon Ashton MD COMP: 03/04/25-1111 ENTERED: 03/04/[address]: ORDERED: Met Prof Fast, AST, ALT, Lipid Panel, Free T4, TSH Test Result Flag Reference Sodium 140 135-145 mmol/L Potassium 4.6 3.3-5.1 mmol/L CL 108 96-108 mmol/L CO2 23 22-29 mmol/L Gap 14 12-20 BUN 28 H 9-16 mg/dL Creat 1.03 0.5-1.4 mg/dL eGFR > 60 Chronic Kidney Disease: Estimated GFR < 60 mL/min/1.73m2 Severe Kidney Disease: Estimated GFR < 15 mL/min/1.73m2 FBS 148 H 60-99 mg/dL A fasting glucose of 126 mg/dl or greater on more than one occasion is considered diagnostic of diabetes. CA 9.4 # 8.4-10.2 mg/dL AST (GOT) 27 5-37 U/L ALT (GPT) 14 0-40 U/L Triglyceride 64 <150 mg/dL Desirable Triglyceride: less than 150 mg/dL Borderline High Triglyceride 150-199 mg/dL High Triglyceride: 200-499 mg/dL Very High Triglyceride: greater than or equal to 5OO mg/dL Cholesterol 113 <200 mg/dL Desirable Cholesterol: less than 200 mg/dL Borderline High Cholesterol: 200-239 mg/dL High Cholesterol: greater than 239 mg/dL LDL Calculated 69 <100 mg/dL Desirable LDL: less than 100 mg/dL Near Optimal/Above Optimal LDL: 110-129 mg/dL Borderline High LDL: 130-159 mg/dL High LDL: 160-189 mg/dL Very High LDL: greater than or equal to 190 mg/dL HDL 32 L >40 mg/dL Desirable HDL: greater than 40 mg/dL Note: This HDL assay may give artificially low results in patients with liver disease. Free T4 1.28 0.71-1.85 ng/dL TSH 3rd Gen. 0.10 L 0.32-4.0 uIU/mL TSH 3rd Generation ([facility]) Laboratory Tests 03/04/25 06:19 Estimat Average Glucose 154 Hemoglobin A1c % 7.0 H Urine Creatinine 59.54 Urine Microalbumin 15.0 Microalb/Creat Ratio 25.1 Coding Level of Care Code Est Pt Prev Care >65y(86326) Diagnoses Annual visit for general adult medical examination with abnormal findings Z00.01 Vitamin D deficiency E55.9 Anemia D64.9 Dyslipidemia E78.5 Acquired hypothyroidism E03.9 Essential hypertension I10 Morbid obesity E66.01 Type 2 diabetes mellitus with hyperglycemia, without long-term current use of insulin E11.65 Diabetes mellitus complication status: with hyperglycemia Diabetes mellitus type: type 2 Additional Codes PHQ-9 - 42930 - PHQ-9 Billing: Yes ([id number]) Assessment & Plan Assessment & Plan (1) Annual visit for general adult medical examination with abnormal findings: Code(s): Z00.01 - Encounter for general adult medical examination with abnormal findings Plan: Recent fasting lab results reviewed with patient. Patient does not go to the dentist and does not want to go and see an eye doctor. Declines any colon cancer screening, does not want to get any vaccines (2) Vitamin D deficiency: Code(s): E55.9 - Vitamin D deficiency, unspecified Category: Medical Plan: Continue with vitamin-D 3 supplements 80008 units per capsule to take once a week for the next 3 months (3) Anemia: Code(s): D64.9 - Anemia, unspecified Category: Medical Plan: Patient with history of erosive gastritis but currently having any episodes of rectal bleeding or hematochezia, denies any abdominal pain, does not want to any Cologuard testing or colonoscopy procedure at his age. Encouraged to eat a healthy diet. Continue ferrous sulfate 325 mg daily (4) Dyslipidemia: Code(s): E78.5 - Hyperlipidemia, unspecified Category: Medical Plan: Continue atorvastatin 80 mg daily (5) Acquired hypothyroidism: Code(s): E03.9 - Hypothyroidism, unspecified Category: Medical Plan: Thyroid levels are within normal limits, continued on current dose of levothyroxine 125 mcg daily (6) Essential hypertension: Code(s): I10 - Essential (primary) hypertension Category: Medical Plan: Blood pressure at goal of less than 130/80. Continue with current medication. Reinforced importance of following a low sodium diet, getting regular exercise, and lowering stress levels. (7) Morbid obesity: Code(s): E66.01 - Morbid (severe) obesity due to excess calories Category: Medical Plan: Stressed importance of following healthy diet and getting regular exercise (8) Diabetes mellitus, without long-term current use of insulin: Code(s): E11.9 - Type 2 diabetes mellitus without complications Category: Medical Qualifiers: Diabetes mellitus complication status: with hyperglycemia Diabetes mellitus type: type 2 Qualified Code(s): E11.65 - Type 2 diabetes mellitus with hyperglycemia Plan: Diabetes mellitus fairly controlled with a hemoglobin A1c at 7 %. Continue metformin 500 mg at bedtime Orders: Orders Hemoglobin A1c 08/17/25 D64.9 - Anemia, unspecified, E03.9 - Hypothyroidism, unspecified, E11.65 - Type 2 diabetes mellitus with hyperglycemia, E55.9 - Vitamin D deficiency, unspecified, E66.01 - Morbid (severe) obesity due to excess calories, E78.5 - Hyperlipidemia, unspecified, I10 - Essential (primary) hypertension Lipid Panel 08/17/25 D64.9 - Anemia, unspecified, E03.9 - Hypothyroidism, unspecified, E11.65 - Type 2 diabetes mellitus with hyperglycemia, E55.9 - Vitamin D deficiency, unspecified, E66.01 - Morbid (severe) obesity due to excess calories, E78.5 - Hyperlipidemia, unspecified, I10 - Essential (primary) hypertension IRON PROFILE 08/17/25 D64.9 - Anemia, unspecified, E03.9 - Hypothyroidism, unspecified, E11.65 - Type 2 diabetes mellitus with hyperglycemia, E55.9 - Vitamin D deficiency, unspecified, E66.01 - Morbid (severe) obesity due to excess calories, E78.5 - Hyperlipidemia, unspecified, I10 - Essential (primary) hypertension Aspartate Amino Transferase 08/17/25 D64.9 - Anemia, unspecified, E03.9 - Hypothyroidism, unspecified, E11.65 - Type 2 diabetes mellitus with hyperglycemia, E55.9 - Vitamin D deficiency, unspecified, E66.01 - Morbid (severe) obesity due to excess calories, E78.5 - Hyperlipidemia, unspecified, I10 - Essential (primary) hypertension Alanine Aminotransferase 08/17/25 D64.9 - Anemia, unspecified, E03.9 - Hypothyroidism, unspecified, E11.65 - Type 2 diabetes mellitus with hyperglycemia, E55.9 - Vitamin D deficiency, unspecified, E66.01 - Morbid (severe) obesity due to excess calories, E78.5 - Hyperlipidemia, unspecified, I10 - Essential (primary) hypertension Thyroid Stimulating Hormone 08/17/25 D64.9 - Anemia, unspecified, E03.9 - Hypothyroidism, unspecified, E11.65 - Type 2 diabetes mellitus with hyperglycemia, E55.9 - Vitamin D deficiency, unspecified, E66.01 - Morbid (severe) obesity due to excess calories, E78.5 - Hyperlipidemia, unspecified, I10 - Essential (primary) hypertension Free T4 (Free Thyroxine) 08/17/25 D64.9 - Anemia, unspecified, E03.9 - Hypothyroidism, unspecified, E11.65 - Type 2 diabetes mellitus with hyperglycemia, E55.9 - Vitamin D deficiency, unspecified, E66.01 - Morbid (severe) obesity due to excess calories, E78.5 - Hyperlipidemia, unspecified, I10 - Essential (primary) hypertension Basic Metabolic Panel Fasting 08/17/25 D64.9 - Anemia, unspecified, E03.9 - Hypothyroidism, unspecified, E11.65 - Type 2 diabetes mellitus with hyperglycemia, E55.9 - Vitamin D deficiency, unspecified, E66.01 - Morbid (severe) obesity due to excess calories, E78.5 - Hyperlipidemia, unspecified, I10 - Essential (primary) hypertension Complete Blood Count Auto Diff 08/17/25 D64.9 - Anemia, unspecified, E03.9 - Hypothyroidism, unspecified, E11.65 - Type 2 diabetes mellitus with hyperglycemia, E55.9 - Vitamin D deficiency, unspecified, E66.01 - Morbid (severe) obesity due to excess calories, E78.5 - Hyperlipidemia, unspecified, I10 - Essential (primary) hypertension Vitamin D 25-OH Total 08/17/25 D64.9 - Anemia, unspecified, E03.9 - Hypothyroidism, unspecified, E11.65 - Type 2 diabetes mellitus with hyperglycemia, E55.9 - Vitamin D deficiency, unspecified, E66.01 - Morbid (severe) obesity due to excess calories, E78.5 - Hyperlipidemia, unspecified, I10 - Essential (primary) hypertension Vitamin B12 and Folate 08/17/25 D64.9 - Anemia, unspecified, E03.9 - Hypothyroidism, unspecified, E11.65 - Type 2 diabetes mellitus with hyperglycemia, E55.9 - Vitamin D deficiency, unspecified, E66.01 - Morbid (severe) obesity due to excess calories, E78.5 - Hyperlipidemia, unspecified, I10 - Essential (primary) hypertension Medications: New cholecalciferol (vitamin D3) 1,250 mcg PO QWEEK 13 caps 0RF 3 months E55.9 - Vitamin D deficiency, unspecified ferrous sulfate 325 mg PO DAILY 90 tabs 1RF D64.9 - Anemia, unspecified docusate sodium 100 mg PO DAILY 90 caps 1RF
--- OUTSIDE RECORDS SUMMARY | 2025-03-06 12:04 | XMS_ITS | Clinical Summary ---
Author Organization [facility] ity Address [address] [place] [address] Care Team Providers Care Accounting Specialist Name Role Phone Natasha Lakhani Primary Care Provider [phone] Surgical History Surgery Date Site/Laterality Comments COLONOSCOPY 10/31/19 PROCEDURE: HISTORICAL COLONOSCOPY; COMMENT: no polyps UPPER GASTROINTESTINAL ENDOSCOPY 10/30/19 PROCEDURE: [place] UPPER GI ENDOSCOPY PERFORMED; COMMENT: Muslu; negative ESOPHAGOGASTRODUODENOSCOPY PROCEDURE: [place] ESOPHAGOGASTRODUODENOSCOPY TRANSORAL DIAGNOSTIC OTHER SURGICAL HISTORY PROCEDURE: [place] ESOPHAGOSCOPY FLEXIBLE TRANSORAL DIAGNOSTIC FLEXIBLE SIGMOIDOSCOPY PROCEDURE: [place] SIGMOIDOSCOPY FLX DX W/COLLJ SPEC BR/WA IF PFRMD Medical History Medical History Date Comments Essential hypertension DX:Essent ial hypertension Hyperlipidemia 05/06/2020 DX:Hyperlipidemi a Hypothyroidism 05/06/2020 DX:Hypothyroidis m Diabetes mellitus type 2, uncomplicated (CMS/HCC V24, CMS/HCC V28) 05/06/2020 DX:Diabetes mellitus type 2, uncomplicated (HCC) History of CVA (cerebrovascu lar accident) 05/06/2020 DX:History of CVA (cerebrova scular accident) H. pylori infection 05/06/2020 DX:H. pylori infection Social History Tobacco Use Types Packs/Day Years Used Date Smoking Tobacco: Never Smokeless Tobacco: Never Sex and Gender Information Value Date Recorded Sex Assigned at Not on file Legal Sex Male 11:20 AM EST Gender Identity Not on file Sexual Orientation Not on file Obstetrics History Plan of Treatment Health Maintenance Due Date Last Done Comments DTaP,Tdap,and Td Vaccines (1 - Tdap) 1954 Pneumococcal Vaccine: 50+ Ye ars (1 of 1 - PCV) 1987 Zoster Vaccines (1 of 2) 1987 RSV Immunization Adult Patie nts (1 - 1-dose 75+ series) 2012 COVID-19 Vaccine (2023-2 5 season) 2024 Influenza Vaccine (Season Ended) 2025 HIB Vaccines Aged Out No longer eligi ble based on patient's age to complete this topic HPV Vaccines Aged Out No longer eligi ble based on patient's age to complete this topic Hepatitis A Vaccines Aged Out No long er eligible based on patient's age to complete this topic Hepatitis B Vaccines Aged Out No long er eligible based on patient's age to complete this topic IPV Vaccines Aged Out No longer eligi ble based on patient's age to complete this topic MMR Vaccines Aged Out No longer eligi ble based on patient's age to complete this topic Meningococcal ACWY Vaccine Aged Out N o longer eligible based on patient's age to complete this topic Meningococcal B Vaccine Aged Out No l onger eligible based on patient's age to complete this topic RSV Immunization Patients Un dayne 20 months Aged Out No longer eligible b ased on patient's age to complete this topic Varicella Vaccines Aged Out No longer eligible based on patient's age to complete this topic Care Teams Accounting Specialist Relationship Specialty Start Date End Date Natasha Lakhani PA [address] [place] [id number] PCP - General Internal Medicine 11/07/19
== END 2025-03-06 11:56 | disposition home or self-care (01) ==
PROVIDERS: PCP Internal Medicine; Visit Provider Internal Medicine
DX: Z00.00 Encounter for general adult medical examination without abnormal findings (principal); E11.65 Type 2 diabetes mellitus with hyperglycemia; E66.01 Morbid (severe) obesity due to excess calories; Z68.41 Body mass index [BMI] 40.0-44.9, adult; E55.9 Vitamin D deficiency, unspecified; D64.9 Anemia, unspecified; E78.5 Hyperlipidemia, unspecified; E03.9 Hypothyroidism, unspecified; I10 Essential (primary) hypertension

== ENCOUNTER → 2025-03-06 10:35 | Outpatient (BNVA) | payer MEDICARE, MEDICAID, SELFPAY | PROVIDERS: PCP Internal Medicine; Visit Provider Internal Medicine | DX: Z00.01 Encounter for general adult medical examination with abnormal findings (principal); E55.9 Vitamin D deficiency, unspecified; E78.5 Hyperlipidemia, unspecified; D64.9 Anemia, unspecified; E03.9 Hypothyroidism, unspecified; I10 Essential (primary) hypertension; E11.65 Type 2 diabetes mellitus with hyperglycemia; E66.01 Morbid (severe) obesity due to excess calories; Z68.41 Body mass index [BMI] 40.0-44.9, adult; Z71.3 Dietary counseling and surveillance | CPT/HCPCS: 96127; 99397 ==

== ENCOUNTER 2025-09-05 06:02 | Outpatient (REF) | payer MEDICARE, MEDICAID, SELFPAY ==
[2025-09-05 10:15] LABS: MANUAL DIFF FLAG NO
[2025-09-05 10:27] LABS: Hematocrit 43.3 % (42.0-52.0); Hemoglobin 13.6 g/dl (14.0-18.0); Imm Gran Abs Auto 0.05 X10*3/uL (0.00-0.03); Imm Gran Pct Auto 0.7 % (0.0-0.4); Lymphocytes Absolute Auto 1.3 X10*3/uL (1.2-4.9); Mean Corpuscular HGB Conc 31.4 g/dl (31.0-36.0); Mean Corpuscular Hemoglobin 28.7 pg (27.0-33.0); Mean Corpuscular Volume 91.4 fL (80.0-98.0); NRBC Abs Auto 0.000 X10*3/uL (0.0-0.012); NRBC Pct Auto 0.0 /100WBC (0.0-0.2); Platelet Count 256 X10*3/uL (160-400); Red Blood Count 4.74 X10*6/uL (4.60-5.80); White Blood Count 7.4 X10*3/uL (4.8-10.8)
[2025-09-05 10:55] LABS: Alanine Aminotransferase 11 U/L (0-40); Anion Gap 12 (12-20); Aspartate Amino Transferase 30 U/L (5-37); Blood Urea Nitrogen 26 mg/dL (9-16); Calcium 9.8 mg/dL (8.4-10.2); Carbon Dioxide 29 mmol/L (22-29); Chloride 105 mmol/L (96-108); Cholesterol 154 mg/dL (<200); Estimated Glomerular Filt Rate > 60; HDL Cholesterol 35 mg/dL (>40); Iron 61 mcg/dL (45-160); Percent Iron Saturation 25 % (15-50); Potassium 5.0 mmol/L (3.3-5.1); Sodium 141 mmol/L (135-145); Total Iron Binding Capacity 248 mcg/dL (228-428); Triglycerides 100 mg/dL (<150); Unsaturated Iron Binding 187 ug/dL
[2025-09-05 11:16] LABS: Free T4 (Free Thyroxine) 1.24 ng/dL (0.71-1.85); Thyroid Stimulating Hormone 0.21 uIU/mL (0.32-4.0)
[2025-09-05 11:29] LABS: Folate 9.6 ng/mL (> or = 4.0); Vitamin B12 546 pg/mL (200-900)
== END 2025-09-05 06:03 | disposition home or self-care (01) ==
LOC: HO.HMGCLDS 06:02
PROVIDERS: PCP Internal Medicine; Visit Provider Internal Medicine
DX: E11.65 Type 2 diabetes mellitus with hyperglycemia (principal); E66.01 Morbid (severe) obesity due to excess calories; E11.69 Type 2 diabetes mellitus with other specified complication; E78.5 Hyperlipidemia, unspecified; D64.9 Anemia, unspecified; E55.9 Vitamin D deficiency, unspecified; E03.9 Hypothyroidism, unspecified; I10 Essential (primary) hypertension
CPT/HCPCS: 36415; 80048; 80061; 82306; 82607; 82746; 83036; 83540; 84439; 84443; 84450; 84460; 85025

== ENCOUNTER 2025-09-09 07:57 | Outpatient (AMB) | payer MEDICARE, MEDICAID, SELFPAY ==
--- OUTSIDE RECORDS SUMMARY | 2025-09-09 08:00 | XMS_ITS | Clinical Summary ---
Author Organization [facility] ity Address [address] [place] [address] Care Team Providers Care Programmer Numerical Control Name Role Phone Natasha Lakhani Primary Care Provider [phone] Surgical History Surgery Date Site/Laterality Comments COLONOSCOPY 10/31/19 PROCEDURE: HISTORICAL COLONOSCOPY; COMMENT: no polyps UPPER GASTROINTESTINAL ENDOSCOPY 10/30/19 PROCEDURE: [place] UPPER GI ENDOSCOPY PERFORMED; COMMENT: Muslu; negative ESOPHAGOGASTRODUODENOSCOPY PROCEDURE: [place] ESOPHAGOGASTRODUODENOSCOPY TRANSORAL DIAGNOSTIC OTHER SURGICAL HISTORY PROCEDURE: [place] ESOPHAGOSCOPY FLEXIBLE TRANSORAL DIAGNOSTIC FLEXIBLE SIGMOIDOSCOPY PROCEDURE: [place] SIGMOIDOSCOPY FLX DX W/COLLJ SPEC BR/WA IF [...] nts (1 - 1-dose 75+ series) 2012 Depression Screening 10/17/2024 COVID-19 Vaccine (2024-2 6 season) 2025 Influenza Vaccine (#1) 2025 HIB Vaccines Aged Out No longer [...] age to complete this topic Care Teams Programmer Numerical Control Relationship Specialty Start Date End Date Natasha Lakhani PA [address] [place] [phone] PCP - General Internal Medicine 11/07/19
--- NOTE | 2025-09-09 08:22 | A.OFFPC_ITS ---
Vital Signs 09/09/25 08:26 Height 5 ft 2 in Weight 219 lb BMI 40.1 BP 122/68 Blood Pressure Location Lt brachial Position Sitting Respiration 16 Pulse 78 Pulse Source Pulse Oximeter Temp 98.2 F Temp Source Oral Pulse Oximetry (%) 97 Oxygen Delivery Method Room Air Intake Visit Reasons: 6m f/u Intake Note: Pt is here today for his 6mo. f/u Allergies No Known Allergies Allergy (Verified 09/09/25 08:38) Medication List - Last Reconciled 09/09/25 by Evon Ashton MD acetaminophen (Tylenol) 325 mg PO QID PRN [adjustable bed cane As directed] aspirin (Adult Low Dose Aspirin) 81 mg PO DAILY atorvastatin 80 mg PO DAILY cholecalciferol (vitamin D3) 50 mcg PO DAILY diaper,brief,adult,disposable ([place] Choice Comfort Protect Adult Diaper X- Large) Use As directed 3 times a day docusate sodium 100 mg PO DAILY ferrous sulfate 325 mg PO DAILY levothyroxine 125 mcg PO QAM lisinopril-hydrochlorothiazide 20-25 mg 1 tab PO DAILY metformin 500 mg PO QPM [Pull-ups use As directed NS] [Pull-ups briefs As directed NS] [Transfer shower bench As directed] Tobacco use date assessed: 09/09/25 Fall risk assessment: No Falls in past year Last assessed Fall Risk: 09/09/25 Dental Screening Dental Screen Date: 09/09/25 HPI 6m f/u HPI Details The patient is an 89 year old mellitus, dyslipidemia, hypothyroidism and hypertension, here today for his follow-up. He is accompanied by his daughter, who states that he has been feeling well, still able to get around, lives in his own home on the 1st floor with his , but is not as active as he was in the past. He has been cutting back on his eating, and has lost weight , down from 229 lbs to 219 lbs. The patient's anemia has been improving, with hemoglobin increasing from 12.6 to 13.6. He is still his iron supplements but is not taking his stool softener, claims that he has been moving his bowels daily. Regarding diabetes, blood sugar control has improved, with the HbA1c decreasing from 7 to 6.8. The patient's average sugar over the last three months is now in the 140s, down from the 150s. The patient's family member reports buying Contour test strips [id number] for about $16-18 per month, requests to have a refill prescription sent. Recent lab work also showed good cholesterol levels, normal kidney and liver function, and normal iron levels. The patient's vitamin D level is normal, and currently takes vitamin-D 3 [id number]-iat-[id number] at 2000 unit daily . The patient's family has noticed that the patient's memory is worsening, with increased forgetfulness and repeating questions. The patient resides with the patient's a [place] streets away and recently moved to a first-floor residence to improve ease of going out. Any vaccines, and does not want to get any diabetes eye exam [facility] Medical History Anemia Vitamin D deficiency Urinary incontinence Diabetes mellitus, without long-term current use of insulin Elevated PSA, between 10 and less than 20 ng/ml Vaccination refused by patient Gait instability TIA (transient ischemic attack) Iron deficiency anemia due to chronic blood loss Acute erosive gastritis Morbid obesity Essential hypertension Acquired hypothyroidism Dyslipidemia Surgical History No pertinent past surgical history Family History Father Unknown family medical history Mother Unknown family medical history Son No problems noted. Daughter No problems noted. Daughter No problems noted. Daughter No problems noted. Social History Housing: Apartment Alcohol intake: never Patient Tobacco Use Status: Never used Tobacco e-Cigarette/Vaping Use: Never Used Second Hand Smoke Exposure: No Advance Directives Date on File: 09/23/22 service: No Current occupational status: retired Current occupational exposures/hazards: No Cognitive needs: Yes (needs daughter to translate , speaks only Paraguayan ) Hearing needs: No Vision needs: Yes Questionnaire PHQ-9 Over the last 2 weeks, how often have you been bothered by any of the following problems? 1. Little interest or pleasure in doing things: several days 2. Feeling down, depressed, or hopeless: not at all 3. Trouble falling or staying asleep, or sleeping too much: several days 4. Feeling tired or having little energy: several days 5. Poor appetite or overeating: not at all 6. Feeling bad about yourself - or that you are a failure or have let yourself or your family down: not at all 7. Trouble concentrating on things, such as reading the newspaper or watching television: several days 8. Moving or speaking so slowly that other people could have noticed. Or the opposite - being so fidgety or restless that you have been moving around a lot more than usual: not at all 9. Thoughts that you would be better off or of hurting yourself in some way: not at all Total score: 4 Depression Screening Interpretation: Negative Depression Screening Done: Yes Source: Developed by Drs. Fransico Stewart, Mila Perkins, Tapan Monreal and colleagues, with an educational jorge from [employer]. Thrive Questionnaire Date Thrive assessed: 03/06/25 I am a: Parent/Caregiver What is your living situation today?: I have a steady place to live Within the past 12 months, did the food you bought not last and you didn't have the money to get more?: Never true Within the past 12 months, did you worry whether your food would run out before you got money to buy more?: Never true Do you have trouble paying for medicines?: No Do you have trouble getting transportation to medical appointments?: No Do you have trouble paying your heating and electricity bill?: No Do you have trouble taking care of your child, family member or friend?: No Do you have trouble with day-to-day activities such as bathing, preparing meals, shopping, managing finances, etc.?: Yes Are you currently unemployed and looking for a job?: No Are you interested in more education?: No Please select the resources that you would like help with: None Currently or been in a relationship where the following occur: No concerns reported THRIVE Score: 0 AUDIT C Alcohol Use Questionnaire (AUDIT-C) 1. How often do you have a drink containing alcohol?: Never Total Score: 0 GEOVAYN-7 AMB Questionnaire GEOVANY-7 Date GEOVANY - 7 assessed: 03/06/25 Feeling nervous, anxious, or on edge: 0 = Not at all Not being able to stop or control worryin = Not at all Worrying too much about different things: 0 = Not at all Trouble relaxin = Not at all Being so restless that it is hard to sit still: 0 = Not at all Becoming easily annoyed or irritable: 0 = Not at all Feeling afraid as if something awful might happen: 0 = Not at all Total GEOVANY-7 score (0-4 normal; 5-9 mild; 10-14 moderate; 15-21 severe): 0 Source: Developed by Drs. Fransico Stewart, Mila Perkins, Tapan Monreal and colleagues, with an educational jorge from [employer]. Review of Systems Const Denies difficulty sleeping, Denies fever(s), Denies headache(s) and Reports weight loss Eyes Denies change in vision ENT Denies Normal hearing present (Unable to hear whispered voice), Denies dizziness, Denies headache(s), Denies nasal congestion, Denies nasal discharge and Denies sore throat Card Denies chest pain, Denies lightheadedness, Denies palpitations and Denies dyspnea Resp Denies chest congestion, Denies cough and Denies dyspnea GI Denies abdominal pain, Denies change in bowel habits and Denies heartburn Denies oliguria, Denies dysuria, Denies urinary hesitancy and Denies urinary urgency Musc Reports arthralgias and Reports stiffness Skin/Breast Denies rash Neuro Denies Normal hearing present (Unable to hear whispered voice), Denies dizziness, Denies headache(s) and Denies Sensory deficit (Neuro) Psych Denies anxiety, Denies change in appetite, Denies depression and Denies irritability Endo Denies polydipsia, Denies polyuria and Denies palpitations Ramo/Lymph Denies easy bleeding and Denies easy bruising Aller/Immun Reports no additional complaints Physical exam (Primary Care) Vital Signs: Last Vital Signs Temp 98.2 F 09/09/25 08:26 Pulse 78 09/09/25 08:26 Resp 16 09/09/25 08:26 BP 122/68 09/09/25 08:26 Pulse Ox 97 09/09/25 08:26 Oxygen Delivery Method Room Air 09/09/25 08:26 BMI result Body Mass Index 40.1 BMI Assessment/Plan discussion: High BMI High, discussed plan: lifestyle, weight reduction, dietary and physical activity Tobacco/Smoking Status: Tobacco use Status Tobacco use date assessed 09/09/25 09/09/25 08:25 Patient Tobacco Use Status Never used Tobacco 09/09/25 08:22 e-Cigarette/Vaping Use Never Used 09/09/25 08:22 PHQ-9: PHQ-9 Score PHQ-9: Total score 4 09/09/25 08:25 Depression Screening Interpretation: Negative Thrive Assessment: Date of Thrive Assessment Date Thrive assessed 03/06/25 09/09/25 08:22 Currently or been in a relationship where the following occur: No concerns reported Const General: comfortable and no acute distress Nutritional Appearance: obese morbidly obese Orientation/consciousness: patient oriented x3 Limitations: ambulation with cane HENMT Head: Yes normal to inspection and Yes normocephalic Ears: EAC's normal General nose exam: Normal external nose present Mouth: moist mucous membranes Neck Neck: Yes full ROM and Yes no lymphadenopathy Thyroid: Thyroid normal Carotids: normal carotid upstroke Resp Auscultation: clear to auscultation bilaterally Cardio Rate: regular rate Rhythm: regular rhythm Heart sounds: S1 normal heart sound present and S2 normal heart sound present GI Inspection: Yes normal to inspection, Yes Abdominal panniculus present and Yes obesity Palpation (GI): Soft to palpation Auscultation: normal bowel sounds General: Yes no CVA tenderness Back/Spine/Pelvis Back: no CVA tenderness and No back tenderness Skin General skin exam: no rashes or lesions noted Neuro General: patient oriented x3, moves all extremities, Normal light touch and pain sensation, no focal motor deficits and CN's II-XI intact bilaterally Cranial nerves: No Normal hearing present (Unable to hear whispered voice) Sensory Exam: No Sensory deficit (Neuro) Extrem General: Yes normal to inspection, Yes full ROM, Yes no joint enlargement, Yes no pedal edema and Yes no calf tenderness Results Reviewed Results Reviewed: Name: Saul Aldridge Age/Sex: 89/M : 1935 Unit#: [id number] Attend Dr: Evon Ashton MD Re09/05/25 Status: DEP REF Location: [facility] Disch: SPEC : [id number] BRITTANI: 09/05/25 STATUS: COMP REQ : [id number] RECD: 09/05/25-[address]: Evon Ashton MD COMP: 09/05/25 ENTERED: 09/05/25 [facility] DR: ORDERED: CBC Auto Diff Test Result Flag Reference WBC 7.4 4.8-10.8 X10*3/uL RBC 4.74 4.60-5.80 X10*6/uL HGB 13.6 L 14.0-18.0 g/dl HCT 43.3 42.0-52.0 % MCV 91.4 80.0-98.0 fL MCH 28.7 27.0-33.0 pg MCHC 31.4 31.0-36.0 g/dl RDW 13.1 11.0-16.0 % PLT 256 160-400 X10*3/uL MPV 10.6 9.4-12.4 fL Neut Pct Auto 69.4 45-73 % ImGran Pct Auto 0.7 H 0.0-0.4 % Lymp Pct Auto 17.1 L 20-40 % [place] Pct Auto 8.9 2-11 % Eos Pct Auto 3.1 0-4 % Baso Pct Auto 0.8 0-2 % NRBC Pct Auto 0.0 0.0-0.2 /100WBC ANC Neut Abs # 5.1 2.0-8.3 x10*3/uL ImGran Abs Auto 0.05 H 0.00-0.03 X10*3/uL Lymph Abs Auto 1.3 1.2-4.9 X10*3/uL [place] Abs Auto 0.7 0.1-1.2 X10*3/uL Eos Abs Auto 0.2 0.0-0.4 X10*3/uL Baso Abs Auto 0.1 0.0-0.2 X10*3/uL NRBC Abs Auto 0.000 0.0-0.012 X10*3/uL Name: Saul Aldridge Age/Sex: 89/M : 1935 Unit#: [id number] Attend Dr: Evon Ashton MD Re09/05/25 Status: DEP REF Location: [facility] Disch: SPEC : [id number] BRITTANI: 09/05/25 STATUS: COMP REQ : [id number] RECD: 09/05/[address]: Evon Ashton MD COMP: 09/05/25 ENTERED: 09/05/25 [facility] DR: ORDERED: Met Prof Fast, IRON PROF, AST, ALT, Lipid Panel, Vitamin D 25-OH, Free T Test Result Flag Reference Sodium 141 135-145 mmol/L Potassium 5.0 3.3-5.1 mmol/L CL 105 96-108 mmol/L CO2 29 22-29 mmol/L Gap 12 12-20 BUN 26 H 9-16 mg/dL Creat 1.02 0.5-1.4 mg/dL eGFR > 60 Chronic Kidney Disease: Estimated GFR < 60 mL/min/1.73m2 Severe Kidney Disease: Estimated GFR < 15 mL/min/1.73m2 FBS 136 H 60-99 mg/dL A fasting glucose of 126 mg/dl or greater on more than one occasion is considered diagnostic of diabetes. CA 9.8 8.4-10.2 mg/dL Iron 61 45-160 mcg/dL TIBC 248 228-428 mcg/dL Saturation 25 15-50 % UIBC 187 ug/dL AST (GOT) 30 5-37 U/L ALT (GPT) 11 0-40 U/L Triglyceride 100 <150 mg/dL Desirable Triglyceride: less than 150 mg/dL Borderline High Triglyceride 150-199 mg/dL High Triglyceride: 200-499 mg/dL Very High Triglyceride: greater than or equal to 5OO mg/dL Cholesterol 154 <200 mg/dL Desirable Cholesterol: less than 200 mg/dL Borderline High Cholesterol: 200-239 mg/dL High Cholesterol: greater than 239 mg/dL LDL Calculated 99 <100 mg/dL Desirable LDL: less than 100 mg/dL Near Optimal/Above Optimal LDL: 110-129 mg/dL Borderline High LDL: 130-159 mg/dL High LDL: 160-189 mg/dL Very High LDL: greater than or equal to 190 mg/dL HDL 35 L >40 mg/dL Desirable HDL: greater than 40 mg/dL Note: This HDL assay may give artificially low results in patients with liver disease. Vitamin D 25-OH 55.8 >30 ng/mL Health Based Reference Values* < 20 ng/mL Deficient 20-30 ng/mL Insufficient > 30 ng/mL Sufficient *Rory BURGESS. N Engl J Med. 2007;357:266-280 There is no well-established upper level of normal vitamin D levels. Some laboratories use 50 ng/mL as an upper limit of normal. However, toxicity is patient-dependent and may occur at any level. Careful correlation with the patient's presentation is necessary and, if there is concern for vitamin D toxicity, treatment should be considered irrespective of the serum level. Care must be taken in interpreting Vitamin D results from different laboratories and methodologies. Published data demonstrated that results from patients undergoing hemodialysis may show a negative bias when tested with various automated 25-OH vitamin D assays when compared to LC-MS/MS. When testing samples from patients whose predominant form of Vitamin D is Vitamin D2, such as patients receiving Vitamin D2 supplementation, results that are subtherapeutic should be confirmed with another method such as LC-MS/MS. Free T4 1.24 0.71-1.85 ng/dL TSH 3rd Gen. 0.21 L 0.32-4.0 uIU/mL TSH 3rd Generation ([facility]) Laboratory Tests 09/05/25 06:11 Estimat Average Glucose 148 Hemoglobin A1c % 6.8 H Laboratory Tests 03/04/25 06:19 Microalb/Creat Ratio 25.1 Coding Level of Care Code Complex visit Add On G2211 Diagnoses Type 2 diabetes mellitus with hyperglycemia, without long-term current use of insulin E11.65 Diabetes mellitus type: type 2 Diabetes mellitus complication status: with hyperglycemia Dyslipidemia E78.5 Acquired hypothyroidism E03.9 Essential hypertension I10 Anemia, unspecified type D64.9 Anemia type: unspecified type Assessment & Plan Assessment & Plan (1) Diabetes mellitus, without long-term current use of insulin: Code(s): E11.9 - Type 2 diabetes mellitus without complications Category: Medical Qualifiers: Diabetes mellitus type: type 2 Diabetes mellitus complication status: with hyperglycemia Qualified Code(s): E11.65 - Type 2 diabetes mellitus with hyperglycemia Plan: Continue on metformin 500 mg 1 tablet at night with supper. Prescription sent for control next test strips and lancets, to check blood sugar once a day before a meal. Declines getting any diabetes retinopathy eye screening. Does not want to get any vaccines. (2) Dyslipidemia: Code(s): E78.5 - Hyperlipidemia, unspecified Category: Medical Plan: Fasting lipids are within normal limits, continued on atorvastatin 80 mg daily (3) Acquired hypothyroidism: Code(s): E03.9 - Hypothyroidism, unspecified Category: Medical Plan: Thyroid levels are within normal limits, continue levothyroxine 125 mcg daily taken in the morning an hour before breakfast (4) Essential hypertension: Code(s): I10 - Essential (primary) hypertension Category: Medical Plan: Blood pressure at goal of less than 130/80. Continue with lisinopril-HCTZ 20-25 mg taken once a day in a.m.. Reinforced importance of following a low sodium diet, getting regular exercise, and lowering stress levels. (5) Anemia: Code(s): D64.9 - Anemia, unspecified Category: Medical Qualifiers: Anemia type: unspecified type Qualified Code(s): D64.9 - Anemia, unspecified Plan: Current iron levels are within normal limits, anemia improving. Currently on ferrous sulfate 325 mg daily Orders: Orders Lipid Panel 02/14/26 D64.9 - Anemia, unspecified, E03.9 - Hypothyroidism, unspecified, E11.65 - Type 2 diabetes mellitus with hyperglycemia, E78.5 - Hyperlipidemia, unspecified, I10 - Essential (primary) hypertension Thyroid Stimulating Hormone 02/14/26 D64.9 - Anemia, unspecified, E03.9 - Hypothyroidism, unspecified, E11.65 - Type 2 diabetes mellitus with hyperglycemia, E78.5 - Hyperlipidemia, unspecified, I10 - Essential (primary) hypertension Complete Blood Count Auto Diff 02/14/26 D64.9 - Anemia, unspecified, E03.9 - Hypothyroidism, unspecified, E11.65 - Type 2 diabetes mellitus with hyperglycemia, E78.5 - Hyperlipidemia, unspecified, I10 - Essential (primary) hypertension Alanine Aminotransferase 02/14/26 D64.9 - Anemia, unspecified, E03.9 - Hypothyroidism, unspecified, E11.65 - Type 2 diabetes mellitus with hyperglycemia, E78.5 - Hyperlipidemia, unspecified, I10 - Essential (primary) hypertension Basic Metabolic Panel Fasting 02/14/26 D64.9 - Anemia, unspecified, E03.9 - Hypothyroidism, unspecified, E11.65 - Type 2 diabetes mellitus with hyperglycemia, E78.5 - Hyperlipidemia, unspecified, I10 - Essential (primary) hypertension Hemoglobin A1c 02/14/26 D64.9 - Anemia, unspecified, E03.9 - Hypothyroidism, unspecified, E11.65 - Type 2 diabetes mellitus with hyperglycemia, E78.5 - Hyperlipidemia, unspecified, I10 - Essential (primary) hypertension Microalbumin, Random (w Creat) 02/14/26 D64.9 - Anemia, unspecified, E03.9 - Hypothyroidism, unspecified, E11.65 - Type 2 diabetes mellitus with hyperglycemia, E78.5 - Hyperlipidemia, unspecified, I10 - Essential (primary) hypertension Free T4 (Free Thyroxine) 02/14/26 D64.9 - Anemia, unspecified, E03.9 - Hypothyroidism, unspecified, E11.65 - Type 2 diabetes mellitus with hyperglycemia, E78.5 - Hyperlipidemia, unspecified, I10 - Essential (primary) hypertension Aspartate Amino Transferase 02/14/26 D64.9 - Anemia, unspecified, E03.9 - Hypothyroidism, unspecified, E11.65 - Type 2 diabetes mellitus with hyperglycem ia, E78.5 - Hyperlipidemia, unspecified, I10 - Essential (primary) hypertension Medications: New lancets (Accu-Chek Softclix Lancets) As directed 100 ea 4RF E11.65 - Type 2 diabetes mellitus with hyperglycemia Contour Next Test Strips (blood sugar diagnostic) As directed 50 ea 5RF NS E11.65 - Type 2 diabetes mellitus with hyperglycemia
[2025-09-09 08:26] VITALS: BP 122/68; PULSE 78; RESP 16; TEMP 36.8; O2SAT 97; BMI 40.1
== END 2025-09-09 10:51 | disposition home or self-care (01) ==
LOC: HO.HMCC 07:58
PROVIDERS: PCP Internal Medicine; Visit Provider Internal Medicine
DX: E11.65 Type 2 diabetes mellitus with hyperglycemia (principal); E78.5 Hyperlipidemia, unspecified; E03.9 Hypothyroidism, unspecified; I10 Essential (primary) hypertension; D64.9 Anemia, unspecified

== ENCOUNTER → 2025-09-09 07:57 | Outpatient (BNVA) | payer MEDICARE, MEDICAID, SELFPAY | PROVIDERS: PCP Internal Medicine; Visit Provider Internal Medicine | DX: E11.65 Type 2 diabetes mellitus with hyperglycemia (principal); E78.5 Hyperlipidemia, unspecified; E03.9 Hypothyroidism, unspecified; D64.9 Anemia, unspecified; I10 Essential (primary) hypertension | CPT/HCPCS: 99212 ==